=== PATIENT | male | born 1945 | race Caucasian/White ===

== ENCOUNTER 2017-06-12 00:07 | Day surgery (SDC) | payer MEDICARE, BC ==
[~2017-06-12] VITALS: Ht 198.1 cm; Wt 108.9 kg
[~2017-06-12 00:07] MED LIST: AMLO-96 PO; IBUP100T51 PO; LEVO-3 PO; METF-420 PO; MULT-1287 PO; OXYB5TAB86 PO; PRED-1 PO; ROSU20TA23 PO
[2017-06-12 06:54] VITALS: BP 123/90
--- NOTE | 2017-06-12 07:09 | EKG ---
FACILITY: PATIENT NAME: DAVID HERMAN : [id number] MR: [id number] V: [id number] EXAM DATE: ORDERING PHYSICIAN: EARL TEJEDA TECHNOLOGIST: ARBEN Thomas Reason : PREOP-PROSTATE Blood Pressure : / mmHG Vent. Rate : 066 BPM Atrial Rate : 066 BPM P-R Int : 204 ms QRS Dur : 110 ms QT Int : 418 ms P-R-T Axes : 016 -23 017 degrees QTc Int : 438 ms Sinus rhythm with premature supraventricular complexes Left axis Nonspecific T wave abnormality Abnormal ECG No previous ECGs available Confirmed by JAE PEREZ ([id number]) on 06/12/2017 4:15:25 PM Referred By: NIKHIL Confirmed By:JAE PEREZ
[2017-06-12] MEDS ORDERED: ONDANSETRON 4 MG/2 ML VIAL ONE (07:14)
[2017-06-12] MEDS ORDERED: LIDOCAINE MPF 1% 5 ML VIAL ONE (07:14)
[2017-06-12] MEDS ORDERED: PROPOFOL EMUL(*) 10MG/ML 20 ML 20 ML ONE (07:14)
[2017-06-12] MEDS ORDERED: DEXAMETHASONE SOD 4 MG/ML VIAL ONE (07:14)
[2017-06-12] MEDS ORDERED: fentaNYL CITR 100 MCG/2 ML AMP ONE (07:15)
[2017-06-12] MEDS ORDERED: GENTAMICIN(*) 80 MG/2 ML VIAL 160 MG in NS(*) 0.9% 100 ML BAG 100 ML IVPB ONE (08:00)
[2017-06-12] MEDS ORDERED: cefTRIAXone(*) 1 GM VIAL 1 GM in NS(*) 0.9% 100 ML ADDVANT BAG 100 ML IVPB ONE (08:00)
[2017-06-12] MEDS ORDERED: FAMOTIDINE 20 MG TAB PO ONE (08:00)
[2017-06-12] MEDS ORDERED: MIDAZOLAM 2 MG/2 ML VIAL IVP PRN (08:00)
[2017-06-12] MEDS ORDERED: LIDOCAINE/SOD BICARB 8.4% SYR ID ONE (08:00)
[2017-06-12] MEDS ORDERED: NORMOSOL R SOLN(*) 1000 ML BAG 1,000 ML IV PRN (08:00)
[2017-06-12] MEDS ORDERED: LEVO-85 PO (08:52)
[2017-06-12] MEDS ORDERED: PROMETHAZINE 25 MG/ML 1 ML AMP ONE (08:52)
[2017-06-12] MEDS ORDERED: FAMO20TA28 PO (08:53)
[2017-06-12] MEDS ORDERED: IBUP800T37 PO (08:55)
[2017-06-12] MEDS ORDERED: HYDR-4308 PO (09:11)
[2017-06-12 09:30] VITALS: BP 115/81
[2017-06-12 09:37] VITALS: BP 120/67
[2017-06-12 09:40] VITALS: BP 113/65
--- NOTE | 2017-06-12 16:40 | OPERATIVE REPORT 1 ---
EVENT DATE: June 12, 2017 SURGEON: Reji Nguyen MD ANESTHESIOLOGIST: Arcenio Almonte MD ANESTHESIA: General PREOPERATIVE DIAGNOSES 1. Elevated prostate-specific antigen. 2. Abnormal-feeling prostate. POSTOPERATIVE DIAGNOSES 1. Elevated prostate-specific antigen. 2. Abnormal-feeling prostate. PROCEDURES PERFORMED 1. Prostate ultrasound. 2. Transrectal biopsies times 12. 3. Cystourethroscopy. 4. Evacuation of multiple blood clots from the bladder. DESCRIPTION OF PROCEDURE Under general anesthetic, the patient was prepped and draped in the standard lithotomy position. The prostate ultrasound was performed. The ultrasound showed scattered calculi, a few cystic lesions. Most calculi were on the left side. There was a hypoechoic area posteriorly from the right base to the mid prostate area. Biopsies were obtained from the base, mid, and apical areas of the prostate bilaterally times two for a total of 12 biopsy samples. The rectal probe was removed. Digital examination revealed minimal blood in the rectal ampulla. Patient was prepped and draped. A #21 panendoscope admitted through the urethra into the bladder. Urethra was normal. Prostate showed trilobar hyperplasia with obstruction. Bladder showed 4+ trabeculation. Trigone and ureteral orifices were normal. There were three to four fairly large clots in the bladder that were evacuated satisfactorily. The bladder irrigated relatively clear following that. The bladder was drained. The scope was withdrawn. Repeat digital examination, again, revealed minimal blood in the rectal ampulla. Patient tolerated the procedures satisfactorily and returned to the recovery room in satisfactory condition. This is a 71-year-old white male complaining of elevated PSA of 5.3 in April 2017. Patient had a 3.74 in June 2016. There was an area of induration first and foremost in the right lateral lobe area, mid base area. Patient was so informed. Options were discussed with the patient, and he was agreeable to further evaluation. That has been accomplished. See operative note for details. Patient will be ready for discharge home when alert and functional. Patient is to force fluids, 2 L per day. Activities are as tolerated. Patient is to continue his usual medications. Outpatient instructions were given to the patient. Plan followup at the [facility] on Friday, the May. He is to call for an appointment. Patient was given descriptions for Levaquin, Pepcid, Motrin, and [place] therapy. Patient is to continue his usual medications. Patient is to contact me if there are any difficulties. He was given my personal cell phone number. If patient is unable to void, he is to go to the Emergency Room for Kohler placement. HOANG
--- NOTE | 2017-06-12 17:00 | RADIOLOGY IMAGING REPORT ---
[place] [facility] [place] Shady Vargas : 1945 MR: [id number] V: [id number] EXAM DATE: ORDERING PHYSICIAN: BRANDO NGUYEN TECHNOLOGIST: Location: [facility] [place] Patient: Shady Vargas : 1945 Visit/Account:[id number] Date of Sevice: 06/12/2017 Exam type: PROSTATE BIOPSY History: Elevated PSA Comparison: None. Findings: The prostate biopsy was performed by Dr. Nguyen. Sonographic assistance was provided Please see Dr. Nguyen's note for complete details. IMPRESSION: 1. As above Report Dictated By: Joi Ospina MD at 06/12/2017 4:55 PM Report E-Signed By: Joi Ospina MD at 06/12/2017 4:56 PM WSN:[id number]
== END 2017-06-12 09:30 | disposition home or self-care (01) ==
LOC: OR 00:07
DX: R97.20 Elevated prostate specific antigen [PSA] (principal); I10 Essential (primary) hypertension; E11.9 Type 2 diabetes mellitus without complications
CPT/HCPCS: 36416; 52001; 55700; 76942; 82948; 88305; 88344; 93005; A9270; J1100; J1580; J2001; J2405; J2550; J2704; J3010; J7050

== ENCOUNTER 2017-09-05 10:01 | Outpatient (RCR) | payer MEDICARE, BC ==
[~2017-09-05 10:01] MED LIST changes: +FAMO20TA28 PO; +HYDR-4308 PO; +IBUP800T37 PO; +LEVO-85 PO; -METF-420 PO; +METF-421 PO
== END 2017-10-24 09:16 | disposition home or self-care (01) ==
LOC: SPU 10:01
PROVIDERS: ATTEND Nurse Practitioner Family
DX: C61 Malignant neoplasm of prostate (principal)

== ENCOUNTER 2017-09-05 10:13 | Inpatient (IN) | payer MEDICARE, BC ==
[~2017-09-05] VITALS: Ht 203.2 cm; Wt 105.2 kg
--- NOTE | 2017-09-05 10:23 | ER Report ---
History and Physical Time Seen By MD: 10:23 HPI/ROS CHIEF COMPLAINT: possible bowel obstruction HISTORY OF PRESENT ILLNESS: This is a 72 year old male. He was at the cancer center for his radiation treatment for prostate cancer, but had been having abdominal pain with distention. He has not had a bowel movement for 4 days. He is having diffuse abdominal pain, worse in the lower abdomen. He has not urinated this morning as well and feels like he needs to urinate but cannot. The cancer center started a workup, including some initial blood work and imaging. They are concerned about possible bowel obstruction. He is not nauseated and no vomiting. He denies shortness of breath or chest pain at this time. No fevers or chills noted. No pain in the back or extremities. REVIEW OF SYSTEMS: As above. Allergies: Coded Allergies: atorvastatin (Verified Allergy, Intermediate, "bad cramps in leg" , ) Home Meds Reported Medications Ibuprofen (IBUPROFEN) 800 Mg Tablet, 1 TAB PO BID Y for PAIN, #30 TAB 06/12/17 Multivitamin (MEN'S MULTI-VITAMIN) 1 Each Tablet, 1 EACH PO 06/06/17 Rosuvastatin Calcium (CRESTOR) 20 Mg Tablet, 20 MG PO QDAY 06/06/17 Amlodipine Besylate (AMLODIPINE BESYLATE) 5 Mg Tablet, 1 TAB PO QDAY, TAB 06/06/17 Levothyroxine Sodium (LEVOTHYROXINE SODIUM) 100 Mcg Tablet, 112 MCG PO QDAY, TAB 06/06/17 Metformin Hcl (METFORMIN HCL) 1,000 Mg Tablet, 1 TAB PO BID, TAB 06/06/17 Oxybutynin Chloride (OXYBUTYNIN CHLORIDE) 5 Mg Tablet, 5 MG PO QDAY, TAB 06/06/17 Prednisone 10 Mg Tab (PREDNISONE 10 MG TAB) 10 Mg Tablet, 5 MG PO QDAY, #3 TAB 06/06/17 Past Medical/Surgical History Ayg-[id number]-[id number] diabetes, hypertension, hyperlipidemia, hypothyroidism, arthritis, history of prostate cancer, history of appendectomy, history of back surgery and L4-L5 and L5-S1, cataract surgery. Reviewed Nurses Notes: Yes Hx Smoking: Yes (QUIT 1974, 1 PPD X 8 YRS) Smoking Status: Former Smoker Hx Alcohol Use: No Constitutional Vital Sign - Last 24 Hours 09/05/17 09/05/17 09/05/17 09/05/17 10:15 10:18 10:28 10:30 Temp 97.5 Pulse 71 77 Resp 16 B/P (MAP) 161/106 161/105 (123) 135/97 (110) Pulse Ox 91 91 O2 Delivery Room Air 09/05/17 09/05/17 09/05/17 09/05/17 10:43 10:58 11:00 11:13 Pulse 76 82 70 B/P (MAP) 132/91 (105) Pulse Ox 90 88 89 09/05/17 09/05/17 09/05/17 09/05/17 11:18 11:48 11:53 11:58 Pulse 64 58 62 71 Pulse Ox 94 97 95 92 09/05/17 09/05/17 09/05/17 09/05/17 12:00 12:03 12:07 12:08 Pulse 62 63 B/P (MAP) 146/102 (117) Pulse Ox 95 95 O2 Flow Rate 2.0 09/05/17 09/05/17 09/05/17 09/05/17 12:18 12:23 12:38 12:53 Pulse 86 87 61 83 Pulse Ox 89 90 94 09/05/17 09/05/17 09/05/17 09/05/17 13:00 13:08 13:23 13:30 Pulse 64 82 B/P (MAP) 133/94 (107) 130/94 (106) Pulse Ox 90 92 09/05/17 14:00 B/P (MAP) 138/97 (111) Physical Exam General Appearance: The patient is alert. No acute distress. Eyes: Pupils are equal, round. No pallor, injection or icterus. ENT: Mucous membranes are dry. Otherwise normal oral mucosa. Posterior oropharynx is normal. Neck: Supple and non tender. Respiratory: Lungs are clear to auscultation. Cardiovascular: Regular rate and rhythm. No murmurs, gallops or rubs. Normal capillary refill. Gastrointestinal: Abdomen is soft, tender diffusely but worse in lower abdomen. Distended. No rebound or guarding. Hyperactive bowel sounds. No costovertebral angle tenderness with percussion. Neurological: Alert and oriented x3 Skin: Warm and dry. No rashes. DIFFERENTIAL DIAGNOSIS: After history and physical exam, differential diagnosis was considered for abdominal pain including but not limited to what appears to be a bowel obstruction, but unknown cause. Having some urinary retention as well. Medical Decision Making Data Points Result Diagram: 09/06/17 0509/06/17 0521 Laboratory Hematology Test 09/05/17 10:40 09/05/17 11:05 Lactate 1.4 mmol/L (0.7-2.1) Amylase Level 67 U/L (0-110) Lipase 52 U/L (23-300) Urine Color Yellow Urine Clarity Clear Urine pH 5.0 pH (4.8-9.5) Urine Specific [place] 1.019 Urine Protein Negative mg/dL (NEGATIVE) Urine Glucose (UA) Negative mg/dL (NEGATIVE) Urine Ketones Trace mg/dL (NEGATIVE) Urine Blood Negative (NEGATIVE) Urine Nitrite Negative (NEGATIVE) Urine Bilirubin Negative (NEGATIVE) Urine Urobilinogen Negative mg/dL (0.2-1.9) Urine Leukocyte Esterase Negative (NEGATIVE) Urine RBC None /HPF (0-2/HPF) Urine WBC 1 /HPF (0-5/HPF) Urine Squamous Epithelial Cells Few /LPF (NONE-FEW) Urine Bacteria Negative /HPF (NONE-FEW) Urine Mucus Few /HPF (NONE-FEW) Chemistry Test 09/05/17 10:40 09/05/17 11:05 Lactate 1.4 mmol/L (0.7-2.1) Amylase Level 67 U/L (0-110) Lipase 52 U/L (23-300) Urine Color Yellow Urine Clarity Clear Urine pH 5.0 pH (4.8-9.5) Urine Specific [place] 1.019 Urine Protein Negative mg/dL (NEGATIVE) Urine Glucose (UA) Negative mg/dL (NEGATIVE) Urine Ketones Trace mg/dL (NEGATIVE) Urine Blood Negative (NEGATIVE) Urine Nitrite Negative (NEGATIVE) Urine Bilirubin Negative (NEGATIVE) Urine Urobilinogen Negative mg/dL (0.2-1.9) Urine Leukocyte Esterase Negative (NEGATIVE) Urine RBC None /HPF (0-2/HPF) Urine WBC 1 /HPF (0-5/HPF) Urine Squamous Epithelial Cells Few /LPF (NONE-FEW) Urine Bacteria Negative /HPF (NONE-FEW) Urine Mucus Few /HPF (NONE-FEW) Urinalysis Test 09/05/17 11:05 Urine Color Yellow Urine Clarity Clear Urine pH 5.0 pH (4.8-9.5) Urine Specific [place] 1.019 Urine Protein Negative mg/dL (NEGATIVE) Urine Glucose (UA) Negative mg/dL (NEGATIVE) Urine Ketones Trace mg/dL (NEGATIVE) Urine Blood Negative (NEGATIVE) Urine Nitrite Negative (NEGATIVE) Urine Bilirubin Negative (NEGATIVE) Urine Urobilinogen Negative mg/dL (0.2-1.9) Urine Leukocyte Esterase Negative (NEGATIVE) Urine RBC None /HPF (0-2/HPF) Urine WBC 1 /HPF (0-5/HPF) Urine Squamous Epithelial Cells Few /LPF (NONE-FEW) Urine Bacteria Negative /HPF (NONE-FEW) Urine Mucus Few /HPF (NONE-FEW) EKG/Imaging Imaging CT abdomen and pelvis with IV contrast Indication: Abdominal pain and distention Comparison: None available. . Technique: Axial CT images were obtained through the abdomen and pelvis during injection of nonionic iodinated intravenous contrast. Reformatted coronal and sagittal images were also obtained. One of the following dose optimization techniques was utilized in the performance of this exam: automated exposure control; adjustment of the mA and/ or kV according to the patient's size; or use of an iterative reconstruction technique. Specific details can be referenced in the facility's radiology CT exam operational policy. Contrast: 100 ml of Isovue-370 IV contrast. Findings: Lower lung lopez: Mild posterior dependent atelectasis at the lung bases. Liver: 1.2 cm cyst seen within the anterior right lobe of the liver.. There is also a tiny subcentimeter cyst seen within the superior anterior right lobe on image 62 of the axial series. Biliary: Gallbladder appears unremarkable as well as the intra and extra hepatic biliary system. Pancreas: Normal appearance. Spleen: Normal appearance. Adrenal glands: Unremarkable. Kidneys / retroperitoneum: No evidence of nephrolithiasis or hydronephrosis There are a few splenorenal varices suggested on the left. Bowel / peritoneum / mesenteries: There is evidence of a sigmoid volvulus with significantly dilated sigmoid colon and descending colon proximal to the volvulus. Moderate amount of stool seen within the ascending colon. Lymph node assessment: No pathologic adenopathy identified. Pelvic structures: Kohler catheter seen within the urinary bladder with nonspecific mild thickening of the wall urinary bladder noted. The distal tip of the catheter also appears to abut the superior margin of the urinary bladder wall and extends to the superficial margin of the wall on image 71 of sagittal series. Vessels: Mild atherosclerotic calcifications seen throughout a nonaneurysmal abdominal aorta and branches. Musculoskeletal / Body wall: Vacuum phenomenon L5-S1. Prominent facet arthropathy L4-L5 and L5-S1. Minimal anterior osteophytes spanning L3-L5. Moderate osteoarthritic changes of the pubic symphysis. Mild enthesopathic changes of the proximal bilateral hamstring tendons. IMPRESSION: 1. Sigmoid volvulus. 2. Kohler catheter within urinary bladder with the distal tip appearing to extend to the superficial margin of the superior anterior urinary bladder wall. No free fluid identified at this time. Report Dictated By: Arnol Weston MD at 09/05/2017 12:50 PM KUB done after NG tube. NG tube is not visible, so was removed and re-attempted. ED Course/Re-evaluation Clinical Indication for ER IV: Hydration, IV Access ED Course The patient had an IV started, and was given Morphine 4mg IV and Zofran 4mg IV. He had good relief with this. He had normal saline started at 125cc/hr. A Kohler catheter was placed after bladder scanner showed about 400cc in the bladder, and drained 375cc of clear urine. I viewed the x-rays done at the cancer center and showed dilated bowel. NG tube was attempted, and the patient had a difficult time with this and on the third attempt seemed to be placed, but KUB did not show the NG tube in the lower chest/esophagus or stomach. A second dose of Morphine 4mg IV was given for pain. CT scan was obtained and showed a Sigmoid volvulus. Dr. Yanez was contacted and came to the ER for further evaluation. He will be admitting with plan to take him to the OR this afternoon. Decision to Disposition Date: Sep 05, 2017 Decision to Disposition Time: 13:23 Depart Departure Latest Vital Signs Vital Signs Date Time Temp Pulse Resp B/P (MAP) Pulse Ox O2 Delivery O2 Flow Rate FiO2 09/05/17 14:00 138/97 (111) 09/05/17 13:23 82 92 09/05/17 12:00 2.0 09/05/17 10:15 97.5 16 Room Air Impression: Primary Impression: Sigmoid volvulus Condition: Condition Unchanged Disposition: ADMIT FROM ER TO OR DEVIKA MULLEN MD Sep 05, 2017 10:23
[2017-09-05] MEDS ORDERED: NS(*) 0.9% 1000 ML BAG 1,000 ML IV ONE (10:35)
[2017-09-05] MEDS ORDERED: MORPHINE 4 MG/ML SDV IVP ONE ×2 (10:35→11:55)
[2017-09-05] MEDS ORDERED: ONDANSETRON 4 MG/2 ML VIAL IVP ONE (10:35)
[2017-09-05] MEDS ORDERED: IOPAMIDOL 76% 100 ML INFUS BTL 100 ML ONE (10:50)
[2017-09-05] MEDS ORDERED: LORazepam 2 MG/ML VIAL IVP ONE (11:55)
--- NOTE | 2017-09-05 13:08 | RADIOLOGY IMAGING REPORT ---
FACILITY: [facility] PATIENT NAME: Shady Vargas : 1945 MR: [id number] V: [id number] EXAM DATE: ORDERING PHYSICIAN: DEVIKA MULLEN TECHNOLOGIST: Location: [facility] - [place] Patient: Shady Vargas : 1945 Visit/Account:[id number] Date of Sevice: 09/05/2017 CT abdomen and pelvis with IV contrast Indication: Abdominal pain and distention Comparison: None available. . Technique: Axial CT images were obtained through the abdomen and pelvis during injection of nonioni c iodinated intravenous contrast. Reformatted coronal and sagittal images were also obtained. One of the following dose optimization techniques was utilized in the performance of this exam: autom ated exposure control; adjustment of the mA and/or kV according to the patient's size; or use of an i terative reconstruction technique. Specific details can be referenced in the facility's radiology CT exam operational policy. Contrast: 100 ml of Isovue-370 IV contrast. Findings: Lower lung lopez: Mild posterior dependent atelectasis at the lung bases. Liver: 1.2 cm cyst seen within the anterior right lobe of the liver.. There is also a tiny subcentim eter cyst seen within the superior anterior right lobe on image 62 of the axial series. Biliary: Gallbladder appears unremarkable as well as the intra and extra hepatic biliary system. Pancreas: Normal appearance. Spleen: Normal appearance. Adrenal glands: Unremarkable. Kidneys / retroperitoneum: No evidence of nephrolithiasis or hydronephrosis There are a few splenorenal varices suggested on the left. Bowel / peritoneum / mesenteries: There is evidence of a sigmoid volvulus with significantly dilated sigmoid colon and descending colon proximal to the volvulus. Moderate amount of stool seen within th e ascending colon. Lymph node assessment: No pathologic adenopathy identified. Pelvic structures: Kohler catheter seen within the urinary bladder with nonspecific mild thickening of the wall urinary bladder noted. The distal tip of the catheter also appears to abut the superior margin of the urinary bladder wall and extends to the superficial margin of the wall on image 71 of sagittal series. Vessels: Mild atherosclerotic calcifications seen throughout a nonaneurysmal abdominal aorta and bran ches. Musculoskeletal / Body wall: Vacuum phenomenon L5-S1. Prominent facet arthropathy L4-L5 and L5-S1. Minimal anterior osteophytes spanning L3-L5. Moderate osteoarthritic changes of the pubic symphysis. Mild enthesopathic changes of the proximal bilateral hamstring tendons. IMPRESSION: 1. Sigmoid volvulus. 2. Kohler catheter within urinary bladder with the distal tip appearing to extend to the superficial margin of the superior anterior urinary bladder wall. No free fluid identified at this time. Report Dictated By: Arnol Weston MD at 09/05/2017 12:50 PM Report E-Signed By: Arnol Weston MD at 09/05/2017 1:04 PM WSN:[email or web address]
[2017-09-05] MEDS ORDERED: PROMETHAZINE 25 MG/ML 1 ML AMP IVP PRN (13:25)
[2017-09-05] MEDS ORDERED: cefOXitin/DEX(*) 1GM/50ML PREM 50 ML IVPB ONE ×2 (13:25→18:25)
--- NOTE | 2017-09-05 13:37 | History & Physical ---
History of Present Illness Chief Complaint abdominal pain History of Present Illness 72 year old male with a h/o prostate cancer who was found to have a sigmoid volvulus. He was sent to the [facility] ED from the cancer center d/t abdominal pain and no bowel movement in 4 days. He had a CBC at the cancer center that reported a wbc of 11k. He has not had a fever. His abdomen has been distended. He reports generalized abdominal pain and distension. He has a h/o appendectomy. CT scan notes sigmoid volvulus and no other findings. He is not on any blood thinning medications. No cardiovascular comorbidities. He has non- insulin dependent diabetes. History Home Meds Reported Medications Ibuprofen (IBUPROFEN) 800 Mg Tablet, 1 TAB PO BID Y for PAIN, #30 TAB 06/12/17 Multivitamin (MEN'S MULTI-VITAMIN) 1 Each Tablet, 1 EACH PO 06/06/17 Rosuvastatin Calcium (CRESTOR) 20 Mg Tablet, 20 MG PO QDAY 06/06/17 Amlodipine Besylate (AMLODIPINE BESYLATE) 5 Mg Tablet, 1 TAB PO QDAY, TAB 06/06/17 Levothyroxine Sodium (LEVOTHYROXINE SODIUM) 100 Mcg Tablet, 112 MCG PO QDAY, TAB 06/06/17 Metformin Hcl (METFORMIN HCL) 1,000 Mg Tablet, 1 TAB PO BID, TAB 06/06/17 Oxybutynin Chloride (OXYBUTYNIN CHLORIDE) 5 Mg Tablet, 5 MG PO QDAY, TAB 06/06/17 Prednisone 10 Mg Tab (PREDNISONE 10 MG TAB) 10 Mg Tablet, 5 MG PO QDAY, #3 TAB 06/06/17 Allergies: Coded Allergies: atorvastatin (Verified Allergy, Intermediate, "bad cramps in leg" , ) Hx Smoking: Yes (QUIT 1974, 1 PPD X 8 YRS) Smoking Status: Former Smoker Caffeine Intake: Coffee, Tea Caffeine/Cups Per Day: 4 CPD Hx Alcohol Use: No Hx Substance Use Disorder: No Review of Systems Gastrointestinal: Nausea, Constipation, Abdominal Pain Exam Vital Signs Vital Signs Date Time Temp Pulse Resp B/P (MAP) Pulse Ox O2 Delivery O2 Flow Rate FiO2 09/05/17 12:18 86 89 09/05/17 12:07 146/102 (117) 09/05/17 12:00 2.0 09/05/17 10:15 97.5 16 Room Air Neuro: No Gross deficits Eyes: PERRLA ENT: Normal Neck: No Masses Cardiovascular: Normal Rhythm & Peripheral Pulses Respiratory: No Respiratory Distress, Clear to Auscultation GI: Other (distended, mildly tender) Extremities: Soft and Non Tender Integumentary: Skin Intact without Lesion / Mass Psych: Alert & Oriented X3 Venous Thromboembolism VTE Risk Patient's VTE Risk: Low VTE Diagnostic Test 2 Days Prior to Admit: No Antithrombotics Is Pt On Any Antithrombotics?: No Exam Sepsis Risk: No Definite Risk JEAN CALLAWAY MD Sep 05, 2017 13:37
--- NOTE | 2017-09-05 14:47 | RADIOLOGY IMAGING REPORT ---
[place] [facility] [place] NAME: Shady Vargas : 1945 MR: [id number] V: [id number] EXAM DATE: ORDERING PHYSICIAN: DEVIKA MULLEN TECHNOLOGIST: Location: [facility] - [place] Patient: Shady Vargas : 1945 Visit/Account:[id number] Date of Sevice: 09/05/2017 KUB SINGLE VIEW ABDOMEN Indication: NG tube placement Comparison: Single view abdomen earlier on 09/05/2017. Findings: Enteric feeding tube is not seen on these images. Persistent multiple dilated loops of small and lar ge bowel with no evidence of residual contrast within the bilateral renal collecting systems related to the recent CT abdomen and pelvis with contrast. There are no pathologic calcifications identified. IMPRESSION: 1. Persistent dilated loops of small and large bowel as above. 2. No evidence of enteric feeding tube on these images. Report Dictated By: Arnol Weston MD at 09/05/2017 2:41 PM Report E-Signed By: Arnol Weston MD at 09/05/2017 2:43 PM WSN:[email or web address]
[2017-09-05 14:57] VITALS: BP 130/93
[2017-09-05] MEDS ORDERED: FAMOTIDINE 20 MG TAB PO ONE (15:15)
[2017-09-05] MEDS ORDERED: NORMOSOL R SOLN(*) 1000 ML BAG 1,000 ML IV ONE (15:15)
[2017-09-05] MEDS ORDERED: fentaNYL CITR 250 MCG/5 ML AMP ONE (15:32)
[2017-09-05] MEDS ORDERED: ONDANSETRON 4 MG/2 ML VIAL ONE (15:33)
[2017-09-05] MEDS ORDERED: DEXAMETHASONE SOD PHOS 10MG/ML ONE (15:33)
[2017-09-05] MEDS ORDERED: PROPOFOL EMUL(*) 10MG/ML 20 ML 20 ML ONE (15:33)
[2017-09-05] MEDS ORDERED: LIDOCAINE MPF 1% 5 ML VIAL ONE ×2 (15:33)
[2017-09-05] MEDS: HYDROmorphone PCA 6 MG/30 ML IV PRN (17:49)
[2017-09-05] MEDS: KCL/D1/2NS 20 MEQ 1000 ML 1,000 ML IV PRN (17:50)
[2017-09-05] MEDS ORDERED: BUPIV/EPI 0.25% 1:200,000 50ML INFIL ONE (18:36)
[2017-09-05] MEDS ORDERED: ROPIVACAINE 0.2% 20 ML VIAL ONE (18:36)
[2017-09-05] MEDS ORDERED: KETAMINE HCL 200 MG/20 ML MDV ONE (18:45)
[2017-09-05] MEDS ORDERED: HALOPERIDOL LACT 5 MG/ML VIAL IM ONE (18:51)
[2017-09-05] MEDS ORDERED: ACETAMINOPHEN(*)1000 MG/100 ML 100 ML IVPB ONE (19:38)
[2017-09-05] MEDS ORDERED: SUGAMMADEX SOD 500 MG/5 ML SDV ONE (20:08)
[2017-09-05] MEDS ORDERED: NS 0.9% IRRIGATION 1000ML PLCT IR ONE (20:45)
[2017-09-05] MEDS ORDERED: fentaNYL CITR 100 MCG/2 ML AMP ONE (21:39)
[2017-09-05 22:40] VITALS: BP 133/61
[2017-09-05 23:00] VITALS: BP 112/70
[2017-09-05 23:15] VITALS: BP 143/92
[2017-09-05 23:30] VITALS: BP 147/104
[2017-09-05 23:45] VITALS: BP 150/98
[2017-09-06] VITALS (12 sets, daily range): BP systolic 111–159; BP diastolic 66–106
--- NOTE | 2017-09-06 00:24 | OPERATIVE REPORT 1 ---
EVENT DATE: September 05, 2017 SURGEON: Jorgito Yanez MD ANESTHESIOLOGIST: Arnol Joya MD ANESTHESIA: General endotracheal anesthesia. LEAD MANUFACTURING TECHNICIAN: None PREOPERATIVE DIAGNOSIS Sigmoid volvulus. POSTOPERATIVE DIAGNOSIS Sigmoid volvulus. PROCEDURE PERFORMED Sigmoid colectomy and end colostomy. ESTIMATED BLOOD LOSS 50 mL WOUND CLASS Class 2 FINDINGS Large redundant and dilated sigmoid colon. PROCEDURE IN DETAIL The patient was brought to the operating room and placed in the supine position. He underwent general endotracheal anesthesia. His abdomen was prepped and was sterilely draped. Appropriate antibiotics were infusing prior to making an incision. The timeout was then performed. I created a periumbilical midline celiotomy and then carrying this down through the linea alba. I noticed a large, redundant sigmoid colon that was eviscerated and then detorsed. I found a spot on the descending colon that was decompressed and came across this with the HILARY blue load stapler 75 mm. I then marched down the colon towards the rectosigmoid junction using the Harmonic scalpel. At the level of the rectosigmoid junction, I transected the colon using another fire of the HILARY blue load staple. I then noted some bleeding on the mesenteric transection line, and I oversewed this with a running locking 2-0 silk suture along the entire length of the mesenteric transection line. I then ran the small bowel and found no unexpected abnormalities. I freed some adhesions up from the left colon to the small bowel mesentery to provide more length. I then created a defect in the left lower quadrant just inferior to the umbilicus through the skin and anterior rectus sheath, splitting the rectus muscles and posterior rectus sheath for our colostomy. I dilated this up so that two fingers could fit through. I then pulled our descending colon stump through this area and secured it with a Evelia clamp. I then irrigated the abdomen with 2 L of saline. I noticed a little bleeding from the edge of the transected rectosigmoid junction. I decided to oversew this with interrupted silk sutures. I placed 2-0 prolene suture, leaving the tails long to help identify it in the future. After making a brief exploration of the abdomen and ensuring the bowels were all in the correct orientation and pulling the omentum down low, the lap counts were correct at this point, and I closed the midline incision with running #1 looped PDS. I then irrigated this wound and closed the skin with adilson and placed a sterile dressing. I then matured my colostomy by cutting up the staple line with Bovie electrocautery and then maturing it with interrupted 3-0 Vicryl sutures. It appeared pink and healthy after maturation. I then placed a colostomy appliance over this. The patient was then awakened from anesthesia and transported to the PACU and then recovery. HOANG
[2017-09-06 06:19] LABS: PLATELET COUNT, AUTOMATED 164 K/uL (150-450)
[2017-09-06] MEDS: KCL/D1/2NS 20 MEQ 1000 ML 1,000 ML IV PRN ×3 (06:24→23:09)
[2017-09-06] MEDS: ENOXAPARIN 40 MG/0.4ML SYR SC SCH (09:36)
--- NOTE | 2017-09-06 09:47 | General Surgery Progress Note ---
Subjective Progress Notes Subjective passing gas from stoma Physical Exam Vital Signs Date Time Temp Pulse Resp B/P (MAP) Pulse Ox O2 Delivery O2 Flow Rate FiO2 09/06/17 09:34 90 09/06/17 08:04 16 09/06/17 08:04 98.1 67 119/83 (95) Oxy Mask 2.0 General Appearance: Alert, Awake Neuro: No Gross deficits Eyes: PERRLA ENT: Moist Mucous Membranes Cardiovascular: Normal Rhythm & Peripheral Pulses Respiratory: No Respiratory Distress GI: Other (stoma pink, edematous, gas in back. dressing mostly dry, abd attp) Extremities: Soft and Non Tender Integumentary: Skin Intact without Lesion / Mass Psych: Alert & Oriented X3 Result Diagram: 09/06/17 0521 09/06/17 0521 Assessment and Plan Problems: (1) Sigmoid volvulus Status: Acute Assessment & Plan: 09/06 POD1 sigmoidectomy and end colostomy doing well pain controlled with CANVAS SHRINKER passing flatus from stoma, start CLD maintain kendall trend labs Exam Sepsis Risk: No Definite Risk JEAN CALLAWAY MD Sep 06, 2017 09:47
[2017-09-06] MEDS: GABAPENTIN 300 MG CAP PO SCH ×3 (10:38→20:51)
[2017-09-06] MEDS: ACETAMINOPHEN 500 MG TAB PO SCH ×2 (10:38→17:48)
--- NOTE | 2017-09-06 11:31 | Medical Nutrition Therapy ---
Nutrition Anthropometrics Height (Inches): 80.00 Height (Calculated Centimeters: 203.034791 Weight (Pounds): 250 Weight (Calculated Kilograms): 113.398 Miller Nutrition Score: Adequate Miller Nutrition Risk Score: 20 Dietary Referral Nutrition Risk Factors: Nutrition Risk Comment: Physical Findings Physical Appearance: Overweight BMI 25-29 Skin Appearance Skin Appearance: Edema Edema Location Modifier: Edema Location: Type of Edema: Degree of Edema: Gastrointestinal Symptoms GI Symtoms: Change in Bowel Pattern Tube Present: Bowel Sounds: Recent Bowel Pattern: Constipated Stool Characteristics: Nutritional Diagnosis Nutritional Risk Acuity 1: GI Obstruction Nutritional Risk Acuity 2: Head/Neck/GI Cancer (curretn tx for prostrate CA), New Colostomy Nutritional Acuity: 1-High Nutrition Diagnosis: Inadequate Food Intake, Altered GI Function Nutrition Etiology: Physiological Causes Nutrition Problem/Etiology/Sym: Altered GI function r/t dx SBO AEB new colostomy. Energy Requirement: 3200 ([place] St Jeor X 1.2 SF) Protein Requirement: 125 (1.1 gm/kg) Fluid Requirement: 3400 (30 ml/kg) Diet Type: NPO (Nothing by Mouth) Nutrition Intervention: Incr diet as tolerated Nutrition Monitoring & Eval RD Patient Assessment Time: [address] Assessment Type: RD Assessment Patient Nutrition Acuity: 1-High Follow Up Date: Sep 08, 2017 Nutritional Comment: 09/06 Pt admitted with SBO. Pt recieved surgery and now has new colostomy. Pt is curretnly undergoing tX for prostrate CA. Pt is passing gas from stoma and has hypoactive bowel sounds. Pt is NPO. Alb 3.5, BG elevated up to 177. Will cont to monitor and provide eduation for colostomy when appropriate. EMIL ENGLE Sep 06, 2017 11:31
[2017-09-07] MEDS: ACETAMINOPHEN 500 MG TAB PO SCH ×3 (02:49→16:11)
[2017-09-07 02:51] VITALS: BP 144/94
[2017-09-07] MEDS: HYDROmorphone PCA 6 MG/30 ML IV PRN (03:13)
[2017-09-07] MEDS: ONDANSETRON 4 MG/2 ML VIAL IVP PRN (05:46)
[2017-09-07 07:04] VITALS: BP 131/93
[2017-09-07] MEDS: KCL/D1/2NS 20 MEQ 1000 ML 1,000 ML IV PRN ×2 (07:37→16:10)
[2017-09-07] MEDS: GABAPENTIN 300 MG CAP PO SCH ×3 (08:42→21:00)
[2017-09-07] MEDS: ENOXAPARIN 40 MG/0.4ML SYR SC SCH (08:43)
--- NOTE | 2017-09-07 09:30 | General Surgery Progress Note ---
Subjective Progress Notes Subjective heart burn minimal output from stoma tolerating clears Physical Exam Vital Signs Date Time Temp Pulse Resp B/P (MAP) Pulse Ox O2 Delivery O2 Flow Rate FiO2 09/07/17 07:40 92 09/07/17 07:04 97.8 76 13 131/93 (106) Oxy Mask 3.0 General Appearance: Alert, Awake, No Acute Distress Eyes: PERRLA ENT: Normal, Moist Mucous Membranes Cardiovascular: Normal Rhythm & Peripheral Pulses Respiratory: No Respiratory Distress GI: Other (stoma pink and edematous, incision c/d/i, abd soft) Extremities: Soft and Non Tender Integumentary: Skin Intact without Lesion / Mass Psych: Alert & Oriented X3 Result Diagram: 09/06/1752009/06/17520 Assessment and Plan Problems: (1) Sigmoid volvulus Status: Acute Assessment & Plan: 09/06 POD1 sigmoidectomy and end colostomy doing well pain controlled 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 add bowel reg remove kendall catheter saline lock IVFs. check labs today Exam Sepsis Risk: No Definite Risk JEAN CALLAWAY MD Sep 07, 2017 09:30
[2017-09-07] MEDS ORDERED: MAGNESIUM HYDROXIDE* 30ML UDCP PO SCH (10:00)
[2017-09-07] MEDS ORDERED: POLYETHYLENE GLYCOL 17 GM PKT PO SCH (10:00)
[2017-09-07 11:28] VITALS: BP 129/89
[2017-09-07 11:33] LABS: PLATELET COUNT, AUTOMATED 171 K/uL (150-450)
--- NOTE | 2017-09-07 12:36 | RADIOLOGY IMAGING REPORT ---
FACILITY: [facility] PATIENT NAME: Shady Vargas : 1945 MR: [id number] V: [id number] EXAM DATE: ORDERING PHYSICIAN: JEAN CALLAWAY TECHNOLOGIST: Location: [facility] - [place] Patient: Shady Vargas : 1945 Visit/Account:[id number] Date of Sevice: 09/07/2017 ADDENDUM #1 Follow-up images of the abdomen were obtained, which demonstrated the nasogastric tube tip in the bod y the stomach in good position. Report Dictated By: Fede Lockhart at 09/07/2017 12:34 PM Report E-Signed By: Fede Lockhart at 09/07/2017 12:35 PM ORIGINAL REPORT KUB SINGLE VIEW ABDOMEN Indication: NG tube Comparison: Abdomen radiograph 09/05/2017. Findings: On the image and the more upper abdomen, there is a curvilinear structure, which likely is the nasogastric tube. However, images of the lower chest are not available, so it is difficult to be certain. Dilated loops of small bowel are seen. There is no free air. IMPRESSION: Nasogastric tube is probably in the stomach, however recommend a repeat abdomen radiograp h, with images centered more at the lung bases to confirm the position. This was called to the x-ray tech, who will repeat image. Report Dictated By: Fede Lockhart at 09/07/2017 11:01 AM Report E-Signed By: Fede Lockhart at 09/07/2017 12:31 PM WSN:[id number]
[2017-09-07 15:35] VITALS: BP 138/98
[2017-09-07 19:27] VITALS: BP 122/95
[2017-09-07] MEDS ORDERED: ALBUMIN HUMAN 5% IVPB ONE (21:35)
[2017-09-07 22:33] VITALS: BP 117/89
[2017-09-08] MEDS: KCL/D1/2NS 20 MEQ 1000 ML 1,000 ML IV PRN ×2 (00:08→16:31)
[2017-09-08] MEDS ORDERED: ALBUMIN HUMAN 5% 250 ML BTL 250 ML ONE (01:53)
[2017-09-08] MEDS ORDERED: ALBUMIN HUMAN 5% 250 ML BTL 250 ML IVPB ONE (01:55)
[2017-09-08] MEDS: ACETAMINOPHEN 500 MG TAB PO SCH (02:00)
[2017-09-08 02:58] VITALS: BP 100/77
[2017-09-08] MEDS ORDERED: IV BOLUS 500 ML IVSOL IV ONE (06:10)
--- NOTE | 2017-09-08 06:14 | General Surgery Progress Note ---
Subjective Progress Notes Subjective NGT >2L 50cc liquid output from colostomy no fevers low uop Physical Exam Vital Signs Date Time Temp Pulse Resp B/P (MAP) Pulse Ox O2 Delivery O2 Flow Rate FiO2 09/08/17 06:02 89 09/08/17 02:58 96.9 16 100/77 (85) Oxy Mask 4.0 09/07/17 23:55 117 General Appearance: Alert, Awake, No Acute Distress ENT: Normal, Other (ngt light bilious) Cardiovascular: Normal Rhythm & Peripheral Pulses, Other (sinus tach) GI: Other (mild distension, less tender than yesterday, colostomy is pink and edematous, some gas in bag) Extremities: Soft and Non Tender Integumentary: Skin Intact without Lesion / Mass Psych: Alert & Oriented X3 Result Diagram: 09/07/17 1115 09/07/17 1115 Assessment and Plan Problems: (1) Sigmoid volvulus Status: Acute Assessment & Plan: 09/06 POD1 sigmoidectomy and end colostomy doing well pain controlled 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 add bowel reg remove kendall catheter saline lock IVFs. check labs today 09/08 POD3 Cano's procedure for sigmoid volvulous path is still pending NPO, IVFs, NGT with high output, AROBF will start TPN today ambulate, PT/OT consult f/u labs Exam Sepsis Risk: No Definite Risk JEAN CALLAWAY MD Sep 08, 2017 06:14
[2017-09-08] MEDS ORDERED: MAGNESIUM SUL* 2 GM/50 ML IVPB 50 ML IVPB ONE (06:50)
[2017-09-08] MEDS ORDERED: KCL (*) 20 MEQ/100 ML PREMIX 100 ML IV SCH (07:00)
[2017-09-08] MEDS ORDERED: NS(*) 0.9% 500 ML BAG 500 ML ONE (07:34)
[2017-09-08 07:39] VITALS: BP 107/86
[2017-09-08 07:42] LABS: PLATELET COUNT, AUTOMATED 177 K/uL (150-450)
[2017-09-08] MEDS: GABAPENTIN 300 MG CAP PO SCH ×3 (09:00→20:50)
[2017-09-08] MEDS: PANTOPRAZOLE SOD 40 MG IV VIAL IVP SCH (09:15)
[2017-09-08] MEDS: ENOXAPARIN 40 MG/0.4ML SYR SC SCH (09:16)
[2017-09-08] MEDS ORDERED: ACETAMINOPHEN(*)1000 MG/100 ML 100 ML IVPB PRN (09:45)
[2017-09-08 11:43] VITALS: BP 108/78
[2017-09-08 18:58] VITALS: BP 107/83
[2017-09-08] MEDS: HYDROmorphone PCA 6 MG/30 ML IV PRN (23:17)
[2017-09-08 23:20] VITALS: BP 112/83
[2017-09-08] MEDS: INSULIN HUM LISPRO 100 UN/ML 3 ML VIAL SUBQ PRN (23:31)
[2017-09-09] VITALS (7 sets, daily range): BP systolic 103–126; BP diastolic 60–82
[2017-09-09] MEDS: KCL/D1/2NS 20 MEQ 1000 ML 1,000 ML IV PRN ×3 (00:50→19:40)
[2017-09-09 06:26] LABS: PLATELET COUNT, AUTOMATED 166 K/uL (150-450)
--- NOTE | 2017-09-09 07:22 | RADIOLOGY IMAGING REPORT ---
FACILITY: [facility] - [place] PATIENT NAME: Shady Vargas : 1945 MR: [id number] V: [id number] EXAM DATE: ORDERING PHYSICIAN: BUSTER TOTH TECHNOLOGIST: Location: [facility] - [place] Patient: Shady Vargas : 1945 Visit/Account:[id number] Date of Sevice: 09/09/2017 KUB SINGLE VIEW ABDOMEN COMPARISONS: Single view of the abdomen dated September 07, 2017 ADDITIONAL PERTINENT HISTORY: Postop ileus FINDINGS: Lung bases: Strandy opacity at the left lung base likely representing atelectatic change. Supine evidence of free air: None. Bowel gas pattern: NG tube with its tip in the midportion of the stomach. Improved but persistent dil ated loops of small bowel in the upper abdomen compatible with a resolving ileus. Surrounding soft tissues and solid organs: Negative. Osseous structures: Negative. IMPRESSION: 1. Improving but persistent ileus. 2. No new findings from previous exam. Report Dictated By: Bright Mendez MD at 09/09/2017 7:15 AM Report E-Signed By: Bright Mendez MD at 09/09/2017 7:18 AM WSN:[id number]
--- NOTE | 2017-09-09 08:10 | General Surgery Progress Note ---
Subjective Progress Notes Subjective No complaints. Pain well controlled. Physical Exam Vital Signs Date Time Temp Pulse Resp B/P (MAP) Pulse Ox O2 Delivery O2 Flow Rate FiO2 09/09/17 07:55 98.4 60 12 125/60 (81) 97 Nasal Cannula 1.5 Intake and Output 09/10/17 07:00 Output Total 50 ml Balance -50 ml Gastric Drainage Total 50 ml General Appearance: Alert, Awake, No Acute Distress, Afebrile GI: Other (Soft, mildly distended, appropriate postop TTP, midline incision is healing well without erythema or drainage. 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 add bowel reg remove kendall catheter saline lock IVFs. check labs today 09/08 POD3 Cano's procedure for sigmoid volvulous path is still pending NPO, IVFs, NGT with high output, AROBF will start TPN today ambulate, PT/OT consult f/u labs 09/09/17: POD#4. Doing well. Ileus improving but KUB still with with dilated loops of small bowel. Will start NG clamp trials today and if he does well with these will remove the NG tube tomorrow morning. Will start TPN today. Rads unable to place PICC yesterday as the radiologist that was here didn't do that procedure. Continue IS, pulmonary hygiene, PT/OT, ambulation, etc. Condition Stable. Time Spent: < 30 min Exam Sepsis Risk: No Definite Risk BUSTER TOTH MD Sep 09, 2017 08:10
[2017-09-09] MEDS: GABAPENTIN 300 MG CAP PO SCH ×3 (09:00→21:03)
[2017-09-09] MEDS: ENOXAPARIN 40 MG/0.4ML SYR SC SCH (09:16)
[2017-09-09] MEDS: PANTOPRAZOLE SOD 40 MG IV VIAL IVP SCH (09:16)
--- NOTE | 2017-09-09 12:34 | Medical Nutrition Therapy ---
Nutrition Anthropometrics Height (Inches): 80.00 Height (Calculated Centimeters: 203.007319 Weight (Pounds): 244 Weight (Calculated Kilograms): 110.677 Miller Nutrition Score: Adequate Miller Nutrition Risk Score: 20 Dietary Referral Nutrition Risk Factors: Nutrition Risk Comment: Physical Findings Physical Appearance: Overweight BMI 25-29 Skin Appearance Skin Appearance: Edema Edema Location Modifier: Edema Location: Type of Edema: Degree of Edema: Gastrointestinal Symptoms GI Symtoms: Change in Bowel Pattern Tube Present: NG Bowel Sounds: Recent Bowel Pattern: Constipated Stool Characteristics: Nutritional Diagnosis Nutritional Risk Acuity 1: GI Obstruction Nutritional Risk Acuity 2: Head/Neck/GI Cancer (curretn tx for prostrate CA), New Colostomy Nutritional Acuity: 1-High Nutrition Diagnosis: Inadequate Food Intake, Altered GI Function Nutrition Etiology: Physiological Causes Nutrition Problem/Etiology/Sym: Altered GI function r/t dx SBO AEB new colostomy. Energy Requirement: 2617 ([place]-Smith x 1.3SF with ht. of 73") Protein Requirement: 110 (1.1 gm/kg) Fluid Requirement: 2617 (1ml/kcal) Diet Type: NPO (Nothing by Mouth), TPN/PPN Nutrition Intervention: Incr diet as tolerated Nutritional Support Current Enteral / Parental: TPN Tube Feeding Supplement Streng: Full Rate: Clinimex 5%AA + 20% Dex at 83 mL/hr plus 250mL of 20% lipid Current Duration: 24 Current Calories: 1760 Current Protein: 100 Current Lipids Calories: 500 Total Current Calories: 2260 Recommended Enteral / Parental: TPN Tube Feeding Supplement Streng: Full Recommended Rate: Clinimex 5%AA + 20% Dex at 100 ml/hr plus 250mL of 20% lipid Recommended Goal Rate: 100 ml/hr Recommended Duration: 24 Recommended Calories: 2112 Recommended Protein: 120 Recommended Lipids Calories: 500 Total Recommended Calories: 2612 Nutrition Monitoring & Eval RD Patient Assessment Time: [address] Assessment Type: RD Assessment Patient Nutrition Acuity: 1-High Follow Up Date: Sep 08, 2017 Nutritional Comment: 09/06 Pt admitted with SBO. Pt recieved surgery and now has new colostomy. Pt is curretnly undergoing tX for prostrate CA. Pt is passing gas from stoma and has hypoactive bowel sounds. Pt is NPO. Alb 3.5, BG elevated up to 177. Will cont to monitor and provide eduation for colostomy when appropriate. BK 09/08 Today pt. is starting TPN Clinimex 5%AA + 20% Dex. with final rate of 83mL/hr plus 500kcal lipid. Recommend increasing to 100mL/hr Clinimex 5% + 20% Dex plus 500 kcal lipid for total of 2260 kcal. This would provide 100% kcal and 109% protein needs. Pt. still experiencing hypoactive bowel sounds with distention. Alb. low at 3.2 and Na 134. BG was running higher 161-177 but today 124. Still plan to provide education on new colostomy. Will continue to monitor labs, wt. changes and TPN. - RB Copies To Copies to: BUSTER TOTH MD, RAE ANN Sep 08, 2017 16:24
[2017-09-09] MEDS ORDERED: FAT EMULSION 20% 250 ML BAG 250 ML IVPB SCH (16:00)
[2017-09-09] MEDS: HYDROmorphone PCA 6 MG/30 ML IV PRN (16:03)
[2017-09-10] MEDS: KCL/D1/2NS 20 MEQ 1000 ML 1,000 ML IV PRN ×3 (03:54→22:52)
[2017-09-10 03:57] VITALS: BP 102/74
[2017-09-10 06:00] LABS: PLATELET COUNT, AUTOMATED 156 K/uL (150-450)
--- NOTE | 2017-09-10 07:00 | RADIOLOGY IMAGING REPORT ---
FACILITY: [facility] PATIENT NAME: Shady Vargas : 1945 MR: [id number] V: [id number] EXAM DATE: ORDERING PHYSICIAN: BUSTER TOTH TECHNOLOGIST: Location: [facility] Patient: Shady Vargas : 1945 Visit/Account:[id number] Date of Sevice: 09/10/2017 KUB SINGLE VIEW ABDOMEN COMPARISONS: Views of the abdomen dated September 09, 2017 ADDITIONAL PERTINENT HISTORY: Postop ileus FINDINGS: Lung bases: Mild bibasilar atelectatic change. Otherwise negative Supine evidence of free air: None. Bowel gas pattern: Continued but slightly improved dilated loops of small bowel and colon compatible with a resolving postop ileus. Surrounding soft tissues and solid organs: Surgical adilson along the midline of the abdomen. Osseous structures: Negative. IMPRESSION: 1. Bibasilar atelectatic change. 2. Improving but persistent postop ileus. Report Dictated By: Bright Mendze MD at 09/10/2017 6:53 AM Report E-Signed By: Bright Mendez MD at 09/10/2017 6:55 AM WSN:[id number]
--- NOTE | 2017-09-10 07:11 | General Surgery Progress Note ---
Subjective Progress Notes Subjective No complaints this morning. Not much pain. 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 add bowel reg remove kendall catheter saline lock IVFs. check labs today 09/08 POD3 Cano's procedure for sigmoid volvulous path is still pending NPO, IVFs, NGT with high output, AROBF will start TPN today ambulate, PT/OT consult f/u labs 09/09/17: POD#4. Doing well. Ileus improving but KUB still with with dilated loops of small bowel. Will start NG clamp trials today and if he does well with these will remove the NG tube tomorrow morning. Will start TPN today. Rads unable to place PICC yesterday as the radiologist that was here didn't do that procedure. Continue IS, pulmonary hygiene, PT/OT, ambulation, etc. 09/10/17: POD#5. Improving. NG removed and clear diet started last night. KUB this morning with some improving SB dilation. Will continue clear diet today. Hold off on PICC placement/TPN as I'm hopeful to start regular diet in next day or so. O/W CCM. Condition Stable. Time Spent: < 30 min Exam Sepsis Risk: No Definite Risk BUSTER TOTH MD Sep 10, 2017 07:11
[2017-09-10 07:53] VITALS: BP 111/75
[2017-09-10] MEDS: PANTOPRAZOLE SOD 40 MG IV VIAL IVP SCH (09:02)
[2017-09-10] MEDS: GABAPENTIN 300 MG CAP PO SCH ×3 (09:03→20:36)
[2017-09-10] MEDS: ENOXAPARIN 40 MG/0.4ML SYR SC SCH (09:03)
[2017-09-10] MEDS: HYDROmorphone PCA 6 MG/30 ML IV PRN (09:47)
[2017-09-10 11:46] VITALS: BP 94/76
[2017-09-10 12:38] VITALS: BP 98/67
[2017-09-10 15:06] VITALS: BP 122/74
[2017-09-10] MEDS ORDERED: [UNRECOGNIZED DRUG - OTHER] IV ONE (16:00)
[2017-09-10] MEDS ORDERED: LIDOCAINE 2% JELLY 5 ML TUBE TP ONE (18:05)
[2017-09-10] MEDS ORDERED: BENZOCAINE/TETRACAINE/BUTAMBEN TOP ONE (18:05)
[2017-09-10 19:51] VITALS: BP 134/91
--- NOTE | 2017-09-10 20:24 | RADIOLOGY IMAGING REPORT ---
FACILITY: [facility] - [place] PATIENT NAME: Shady Vargas : 1945 MR: [id number] V: [id number] EXAM DATE: ORDERING PHYSICIAN: BUSTER TOTH TECHNOLOGIST: Location: [facility] - [place] Patient: Shady Vargas : 1945 Visit/Account:[id number] Date of Sevice: 09/10/2017 INDICATION: Abdominal distention. EXAM DATE: 09/10/2017 6:01 PM COMPARISON: Same-day radiograph approximately 12 hours prior. FINDINGS: 2 AP supine images of the abdomen Redemonstration multiple distended loops of small bowel, overall similar in appearance to prior exami nation. No pneumatosis, pneumoperitoneum or portal venous gas. No evidence of large volume ascites or mass. Surgical clips over the lower abdomen/pelvis. IMPRESSION: No significant change with persistent dilated loops of small bowel that may represent ile us or obstruction. Report Dictated By: Vikash Bhatt MD at 09/10/2017 8:19 PM Report E-Signed By: Vikash Bhatt MD at 09/10/2017 8:21 PM WSN:[id number]
[2017-09-11 00:18] VITALS: BP 134/87
[2017-09-11] MEDS: ONDANSETRON 4 MG/2 ML VIAL IVP PRN (03:09)
[2017-09-11 04:06] VITALS: BP 120/79
[2017-09-11 05:58] LABS: PLATELET COUNT, AUTOMATED 157 K/uL (150-450)
--- NOTE | 2017-09-11 06:40 | RADIOLOGY IMAGING REPORT ---
FACILITY: [facility] PATIENT NAME: Shady Vargas : 1945 MR: [id number] V: [id number] EXAM DATE: ORDERING PHYSICIAN: BUSTER TOTH TECHNOLOGIST: Location: [facility] [place] Patient: Shady Vargas : 1945 Visit/Account:[id number] Date of Sevice: 09/11/2017 KUB SINGLE VIEW ABDOMEN COMPARISONS: Views of the abdomen dated September 10, 2017 ADDITIONAL PERTINENT HISTORY: Follow-up ileus FINDINGS: Lung bases: Not imaged Supine evidence of free air: None. Bowel gas pattern: Improved but persistent dilated loops of small and large bowel again most consiste nt with an underlying ileus versus a distal bowel obstruction. Surrounding soft tissues and solid organs: Surgical adilson overlying the midline of the abdomen and upper pelvis. Osseous structures: Mild osteoarthritic changes involving both hips. IMPRESSION: 1. Slightly improved ileus versus distal bowel obstruction when compared to previous exam. 2. No new findings from previous exam. Report Dictated By: Bright Mendez MD at 09/11/2017 6:35 AM Report E-Signed By: Bright Mendez MD at 09/11/2017 6:36 AM WSN:[id number]
[2017-09-11] MEDS: KCL/D1/2NS 20 MEQ 1000 ML 1,000 ML IV PRN ×2 (06:56→17:30)
--- NOTE | 2017-09-11 07:11 | General Surgery Progress Note ---
Subjective Progress Notes Subjective Threw up overnight. Feels "a little" better this morning. Several attempts at NG tube placement were unsuccessful last evening. Not much pain this morning. Physical Exam Vital Signs Date Time Temp Pulse Resp B/P (MAP) Pulse Ox O2 Delivery O2 Flow Rate FiO2 09/11/17 05:49 16 94 09/11/17 05:49 90 09/11/17 04:06 98.1 120/79 (93) Nasal Cannula 3.0 General Appearance: Alert, Awake, No Acute Distress, Afebrile GI: Other (Distended, mild diffuse TTP, no peritoneal signs. Stoma is pink with some stool but no gas in bag this morning. 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 add bowel reg remove kendall catheter saline lock IVFs. check labs today 09/08 POD3 Cano's procedure for sigmoid volvulous path is still pending NPO, IVFs, NGT with high output, AROBF will start TPN today ambulate, PT/OT consult f/u labs 09/09/17: POD#4. Doing well. Ileus improving but KUB still with with dilated loops of small bowel. Will start NG clamp trials today and if he does well with these will remove the NG tube tomorrow morning. Will start TPN today. Rads unable to place PICC yesterday as the radiologist that was here didn't do that procedure. Continue IS, pulmonary hygiene, PT/OT, ambulation, etc. 09/10/17: POD#5. Improving. NG removed and clear diet started last night. KUB this morning with some improving SB dilation. Will continue clear diet today. Hold off on PICC placement/TPN as I'm hopeful to start regular diet in next day or so. O/W CCM. 09/11/17: POD#6. Ileus worsened yesterday. Attempts at NG placement have not been successful. If we need an NG, may need to sedate him but will hold off for now. If N/V continues then will reapproach NG tube placement. Will place PICC line today and start TPN. NPO, bowel rest. Await improvement of ileus. Will need to follow surgical incision closely for increasing signs of infection as it is a little red this morning. Condition Stable. Time Spent: < 30 min Exam Sepsis Risk: No Definite Risk BUSTER TOTH MD Sep 11, 2017 07:11
[2017-09-11] MEDS: GABAPENTIN 300 MG CAP PO SCH ×3 (09:00→20:53)
[2017-09-11] MEDS: ENOXAPARIN 40 MG/0.4ML SYR SC SCH (09:10)
[2017-09-11] MEDS: PANTOPRAZOLE SOD 40 MG IV VIAL IVP SCH (09:10)
[2017-09-11] MEDS ORDERED: LIDOCAINE MPF 1% 5 ML VIAL ONE (10:15)
[2017-09-11] MEDS ORDERED: NS(*) 0.9% 10 ML VIAL 10 ML ONE (10:15)
[2017-09-11] MEDS: INSULIN HUM LISPRO 100 UN/ML 3 ML VIAL SUBQ PRN (12:15)
[2017-09-11 12:18] VITALS: BP 102/70
--- NOTE | 2017-09-11 15:08 | Medical Nutrition Therapy ---
Nutrition Anthropometrics Height (Inches): 80.00 Height (Calculated Centimeters: 203.102679 Weight (Pounds): 243 Weight (Calculated Kilograms): 110.223 Miller Nutrition Score: Probably Inadequate Miller Nutrition Risk Score: 18 Dietary Referral Nutrition Risk Factors: Nutrition Risk Comment: Nutritional Diagnosis Nutritional Risk Acuity 1: TPN/PPN, GI Obstruction, Ileus Nutritional Risk Acuity 2: Head/Neck/GI Cancer (curretn tx for prostrate CA), New Colostomy Nutritional Acuity: 1-High Nutrition Diagnosis: Inadequate Food Intake, Altered GI Function Nutrition Etiology: Physiological Causes Nutrition Problem/Etiology/Sym: Altered GI function r/t dx SBO AEB new colostomy. Energy Requirement: 2617 ([place]-Smith x 1.3SF with ht. of 73") Protein Requirement: 110 (1.1 gm/kg) Fluid Requirement: 2617 (1ml/kcal) Diet Type: NPO (Nothing by Mouth), TPN/PPN Nutrition Intervention: Incr diet as tolerated Nutritional Support Current Enteral / Parental: TPN Tube Feeding Supplement Streng: Full Rate: Clinimex 5%AA + 20% Dex at 83 mL/hr plus 250mL of 20% lipid Current Duration: 24 Current Calories: 1760 Current Protein: 100 Current Lipids Calories: 500 Total Current Calories: 2260 Recommended Enteral / Parental: TPN Tube Feeding Supplement Streng: Full Recommended Rate: Clinimex 5%AA + 20% Dex at 100 ml/hr plus 250mL of 20% lipid Recommended Goal Rate: 100 ml/hr Recommended Duration: 24 Recommended Calories: 2112 Recommended Protein: 120 Recommended Lipids Calories: 500 Total Recommended Calories: 2612 Nutrition Monitoring & Eval RD Patient Assessment Time: [address] Assessment Type: RD Re-Assessment Patient Nutrition Acuity: 1-High Follow Up Date: Sep 13, 2017 Nutritional Comment: 09/06 Pt admitted with SBO. Pt recieved surgery and now has new colostomy. Pt is curretnly undergoing tX for prostrate CA. Pt is passing gas from stoma and has hypoactive bowel sounds. Pt is NPO. Alb 3.5, BG elevated up to 177. Will cont to monitor and provide eduation for colostomy when appropriate. BK 09/08 Today pt. is starting TPN Clinimex 5%AA + 20% Dex. with final rate of 83mL/hr plus 500kcal lipid. Recommend increasing to 100mL/hr Clinimex 5% + 20% Dex plus 500 kcal lipid for total of 2260 kcal. This would provide 100% kcal and 109% protein needs. Pt. still experiencing hypoactive bowel sounds with distention. Alb. low at 3.2 and Na 134. BG was running higher 161-177 but today 124. Still plan to provide education on new colostomy. Will continue to monitor labs, wt. changes and TPN. - RB 09/11 Pt. ileus worsened, vomited last night but feeling a bit better today. Dr noted unable to place NG tube so pt NPO, starting TPN with PICC line this afternoon. On bowel rest, hypoactive and distended. No new alb. levels; WBC, Hct, Na low and CO2 high. BG also high at 123. Pt. on insulin. Current TPN Pt is getting 87% kcal and 90% protein needs. Recommend increasing TPN to 100mL/hr Clinimex 5% + 20% Dex plus 500kcal lipid for total of 2612 kcal. This would provide 100% kcal and 109% protein needs. Will monitor TPN, wt. changes and labs. -RB Copies To Copies to: BUSTER TOTH MD, RAE ANN Sep 11, 2017 14:59
[2017-09-11] MEDS: HYDROmorphone PCA 6 MG/30 ML IV PRN (15:13)
[2017-09-11 15:19] VITALS: BP 111/71
--- NOTE | 2017-09-11 15:24 | RADIOLOGY IMAGING REPORT ---
[facility] PATIENT NAME: Shady Vargas : 1945 MR: [id number] V: [id number] EXAM DATE: ORDERING PHYSICIAN: BUSTER TOTH TECHNOLOGIST: [place] [facility] [place]ady V[place] : 1945 Visit/Account:[id number] Date of Sevice: 09/11/2017 EXAMINATION: Left arm PICC catheter placement utilizing ultrasound and fluoroscopy for guidance 08/24 5:00 AM HISTORY: PICC placement for TPN COMPARISON: Chest x-ray 09/05/2017 FLUOROSCOPY TIME: 0.8 minutes DOSE: DAP was 263.73 uGy/m2 FINDINGS: Veins of the right and left upper arm were assessed with ultrasound. The left extremity w as chosen since the patient is right-handed. The left arm was prepped and draped in sterile fashion. Tourniquet was applied. Ultrasound was utilized to localize the appropriate site for entry into th e basilic vein. Lidocaine was utilized for local anesthesia. Using ultrasound visualization a micro puncture needle was utilized to gain access to the vein and a sheath was placed using Seldinger techn ique. Ultrasound imaging was saved and archived into PACs system. A dual-lumen PICC catheter was ad vanced through the sheath and fluoroscopy was used to confirm positioning. The catheter did not need to be shortened to have the tip in the lower SVC. The catheter aspirated and flushed without diffic ulty through both ports. Guidewire was removed. Catheter was fixed in place. No immediate competit ions were noted. IMPRESSION: Technically successful left arm PICC catheter placement utilizing sonographic and fluoroscopic tori trivedi. Report Dictated By: Fede De Souza MD at 09/11/2017 3:16 PM Report E-Signed By: Fede De Souza MD at 09/11/2017 3:20 PM WSN:[email or web address]
--- NOTE | 2017-09-11 15:25 | RADIOLOGY IMAGING REPORT ---
FACILITY: [facility] PATIENT NAME: Shady Vargas : 1945 MR: [id number] V: [id number] EXAM DATE: [id number] ORDERING PHYSICIAN: BUSTER TOTH TECHNOLOGIST: Location: [facility] [place] Patient: Shady Vargas : 1945 Visit/Account:[id number] Date of Sevice: 09/11/2017 EXAMINATION: Left arm PICC catheter placement utilizing ultrasound and fluoroscopy for guidance 08/24 5:00 AM HISTORY: PICC placement for TPN COMPARISON: Chest x-ray 09/05/2017 FLUOROSCOPY TIME: 0.8 minutes DOSE: DAP was 263.73 uGy/m2 FINDINGS: Veins of the right and left upper arm were assessed with ultrasound. The left extremity w as chosen since the patient is right-handed. The left arm was prepped and draped in sterile fashion. Tourniquet was applied. Ultrasound was utilized to localize the appropriate site for entry into th e basilic vein. Lidocaine was utilized for local anesthesia. Using ultrasound visualization a micro puncture needle was utilized to gain access to the vein and a sheath was placed using Seldinger techn ique. Ultrasound imaging was saved and archived into PACs system. A dual-lumen PICC catheter was ad vanced through the sheath and fluoroscopy was used to confirm positioning. The catheter did not need to be shortened to have the tip in the lower SVC. The catheter aspirated and flushed without diffic ulty through both ports. Guidewire was removed. Catheter was fixed in place. No immediate competit ions were noted. IMPRESSION: Technically successful left arm PICC catheter placement utilizing sonographic and fluoroscopic tori trivedi. Report Dictated By: Fede De Souza MD at 09/11/2017 3:16 PM Report E-Signed By: Fede De Souza MD at 09/11/2017 3:20 PM WSN:[email or web address]
[2017-09-11] MEDS ORDERED: [UNRECOGNIZED DRUG - OTHER] IV SCH (16:00)
[2017-09-11] MEDS ORDERED: [UNRECOGNIZED DRUG - OTHER] IV ONE (16:00)
[2017-09-11] MEDS: FAT EMULSION 20% 250 ML BAG 250 ML IVPB SCH (16:25)
[2017-09-11 19:29] VITALS: BP 121/80
[2017-09-11 22:40] VITALS: BP 117/76
[2017-09-12] MEDS: KCL/D1/2NS 20 MEQ 1000 ML 1,000 ML IV PRN ×2 (01:55→16:05)
[2017-09-12 03:10] VITALS: BP 101/67
[2017-09-12 05:41] LABS: PLATELET COUNT, AUTOMATED 145 K/uL (150-450)
--- NOTE | 2017-09-12 06:25 | RADIOLOGY IMAGING REPORT ---
FACILITY: [facility] PATIENT NAME: Shady Vargas : 1945 MR: [id number] V: [id number] EXAM DATE: ORDERING PHYSICIAN: BUSTER TOTH TECHNOLOGIST: Location: [facility] [place] Patient: Shady Vargas : 1945 Visit/Account:[id number] Date of Sevice: 09/12/2017 KUB SINGLE VIEW ABDOMEN COMPARISONS: Single view the abdomen dated September 11, 2017 ADDITIONAL PERTINENT HISTORY: Prolonged postop ileus FINDINGS: Lung bases: Not imaged Supine evidence of free air: None. Bowel gas pattern: Improving dilated loops of small and large bowel compatible with an improving ileu s. Surrounding soft tissues and solid organs: Midline surgical adilson in place. Osseous structures: Negative. IMPRESSION: 1. Interval improvement in dilated loops of small and large bowel compatible with an improving ileus. 2. No new findings from previous exam. Report Dictated By: Bright Mendez MD at 09/12/2017 6:20 AM Report E-Signed By: Bright Mendez MD at 09/12/2017 6:21 AM WSN:[id number]
--- NOTE | 2017-09-12 07:20 | General Surgery Progress Note ---
Subjective Progress Notes Subjective No complaints. Not much pain. No N/V. Physical Exam Vital Signs Date Time Temp Pulse Resp B/P (MAP) Pulse Ox O2 Delivery O2 Flow Rate FiO2 09/12/17 05:20 91 09/12/17 03:30 84 09/12/17 03:10 99.2 18 101/67 (78) Nasal Cannula 2.0 Intake and Output 09/13/17 06:59 Output Total 200 ml Balance -200 ml Output Urine Total 200 ml General Appearance: Alert, Awake, No Acute Distress, Afebrile GI: Soft and Non-Tender (Mildly distended. Incision looks good, Erythema is stable, no drainage. 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 add bowel reg remove kendall catheter saline lock IVFs. check labs today 09/08 POD3 Cano's procedure for sigmoid volvulous path is still pending NPO, IVFs, NGT with high output, AROBF will start TPN today ambulate, PT/OT consult f/u labs 09/09/17: POD#4. Doing well. Ileus improving but KUB still with with dilated loops of small bowel. Will start NG clamp trials today and if he does well with these will remove the NG tube tomorrow morning. Will start TPN today. Rads unable to place PICC yesterday as the radiologist that was here didn't do that procedure. Continue IS, pulmonary hygiene, PT/OT, ambulation, etc. 09/10/17: POD#5. Improving. NG removed and clear diet started last night. KUB this morning with some improving SB dilation. Will continue clear diet today. Hold off on PICC placement/TPN as I'm hopeful to start regular diet in next day or so. O/W CCM. 09/11/17: POD#6. Ileus worsened yesterday. Attempts at NG placement have not been successful. If we need an NG, may need to sedate him but will hold off for now. If N/V continues then will reapproach NG tube placement. Will place PICC line today and start TPN. NPO, bowel rest. Await improvement of ileus. Will need to follow surgical incision closely for increasing signs of infection as it is a little red this morning. 09/12/17: POD#7. Improving. KUB looks a little better. Stoma function improving. Continue bowel rest and will go very still and follow his KUBs as the previous 2 attempts at advancing his diet have led to increased distension with N/V. Continue TPN. Incision is stable, will follow for drainage or worsening erythema. CCM. Condition Stable. Time Spent: < 30 min Exam Sepsis Risk: No Definite Risk BUSTER TOTH MD Sep 12, 2017 07:20
[2017-09-12 07:39] VITALS: BP 106/78
[2017-09-12] MEDS: PANTOPRAZOLE SOD 40 MG IV VIAL IVP SCH (08:40)
[2017-09-12] MEDS: GABAPENTIN 300 MG CAP PO SCH ×3 (08:40→20:49)
[2017-09-12] MEDS: ENOXAPARIN 40 MG/0.4ML SYR SC SCH (08:40)
--- NOTE | 2017-09-12 11:14 | Medical Nutrition Therapy ---
Nutrition Anthropometrics Height (Inches): 80.00 Height (Calculated Centimeters: 203.337702 Weight (Pounds): 245 Weight (Calculated Kilograms): 111.357 Miller Nutrition Score: Probably Inadequate Miller Nutrition Risk Score: 18 Dietary Referral Nutrition Risk Factors: Nutrition Risk Comment: Nutritional Diagnosis Nutritional Risk Acuity 1: TPN/PPN, GI Obstruction, Ileus Nutritional Risk Acuity 2: Head/Neck/GI Cancer, New Colostomy Nutritional Acuity: 1-High Nutrition Diagnosis: Inadequate Food Intake, Altered GI Function Nutrition Etiology: Physiological Causes Nutrition Problem/Etiology/Sym: Altered GI function r/t dx SBO AEB new colostomy. Energy Requirement: 2617 Protein Requirement: 110 Fluid Requirement: 2617 Diet Type: NPO (Nothing by Mouth), TPN/PPN Nutrition Intervention: Incr diet as tolerated Nutritional Support Current Enteral / Parental: TPN Rate: Clinimex 5%AA + 20% Dex at 100 mL/hr plus 250mL of 20% lipid Current Duration: 24 Current Calories: 2112 Current Protein: 120 Current Lipids Calories: 500 Total Current Calories: 2612 Nutrition Monitoring & Eval RD Patient Assessment Time: [address] Assessment Type: RD Re-Assessment Patient Nutrition Acuity: 1-High Follow Up Date: Sep 16, 2017 Nutritional Comment: 09/06 Pt admitted with SBO. Pt recieved surgery and now has new colostomy. Pt is curretnly undergoing tX for prostrate CA. Pt is passing gas from stoma and has hypoactive bowel sounds. Pt is NPO. Alb 3.5, BG elevated up to 177. Will cont to monitor and provide eduation for colostomy when appropriate. BK 09/08 Today pt. is starting TPN Clinimex 5%AA + 20% Dex. with final rate of 83mL/hr plus 500kcal lipid. Recommend increasing to 100mL/hr Clinimex 5% + 20% Dex plus 500 kcal lipid for total of 2260 kcal. This would provide 100% kcal and 109% protein needs. Pt. still experiencing hypoactive bowel sounds with distention. Alb. low at 3.2 and Na 134. BG was running higher 161-177 but today 124. Still plan to provide education on new colostomy. Will continue to monitor labs, wt. changes and TPN. - RB 09/11 Pt. ileus worsened, vomited last night but feeling a bit better today. Dr noted unable to place NG tube so pt NPO, starting TPN with PICC line this afternoon. On bowel rest, hypoactive and distended. No new alb. levels; WBC, Hct, Na low and CO2 high. BG also high at 123. Pt. on insulin. Current TPN Pt is getting 87% kcal and 90% protein needs. Recommend increasing TPN to 100mL/hr Clinimex 5% + 20% Dex plus 500kcal lipid for total of 2612 kcal. This would provide 100% kcal and 109% protein needs. Will monitor TPN, wt. changes and labs. -RB 09/12 Pt cont on TPN. Rate has increased to 100ml/hr plus lipids which provided 2612 kcal and 120gm protein. This meets 100% est kcal and 109% est protein needs. Wt is stable. EMIL LOCKHART Sep 12, 2017 11:14
[2017-09-12 12:14] VITALS: BP 113/71
[2017-09-12 15:54] VITALS: BP 118/74
[2017-09-12] MEDS ORDERED: [UNRECOGNIZED DRUG - OTHER] IV SCH (16:00)
[2017-09-12] MEDS: [UNRECOGNIZED DRUG - OTHER] IV SCH (16:07)
[2017-09-12] MEDS: FAT EMULSION 20% 250 ML BAG 250 ML IVPB SCH (16:07)
[2017-09-12 18:58] VITALS: BP 108/78
[2017-09-12] MEDS: HYDROmorphone PCA 6 MG/30 ML IV PRN (20:59)
[2017-09-12 23:17] VITALS: BP 124/81
[2017-09-13 03:13] VITALS: BP 110/77
[2017-09-13 05:54] LABS: PLATELET COUNT, AUTOMATED 151 K/uL (150-450)
--- NOTE | 2017-09-13 06:43 | RADIOLOGY IMAGING REPORT ---
[place] [facility] [place] NAME: Shady Vargas : 1945 MR: [id number] V: [id number] EXAM DATE: ORDERING PHYSICIAN: BUSTER TOTH TECHNOLOGIST: Location: [facility] Patient: Shady Varags : 1945 Visit/Account:[id number] Date of Sevice: 09/13/2017 KUB SINGLE VIEW ABDOMEN HISTORY: ileus Abdominal series. Comparison made to previous study of 09/12/2017 FINDINGS: Slightly more pronounced small bowel dilatation when compared to the previous study. No appreciable c hange in the appearance of the visualized right colon. Persistent paucity of bowel gas in the pelvis. . Midline surgical staple line. IMPRESSION: 1. Slightly increasing prominence of small bowel loops compatible with persistent ileus. Report Dictated By: Costa Plata MD at 09/13/2017 6:36 AM Report E-Signed By: Costa Plata MD at 09/13/2017 6:39 AM WSN:[id number]
[2017-09-13 08:03] VITALS: BP 106/72
[2017-09-13] MEDS: ENOXAPARIN 40 MG/0.4ML SYR SC SCH (09:28)
[2017-09-13] MEDS: GABAPENTIN 300 MG CAP PO SCH ×3 (09:29→21:24)
[2017-09-13] MEDS: PANTOPRAZOLE SOD 40 MG IV VIAL IVP SCH (09:29)
--- NOTE | 2017-09-13 10:28 | General Surgery Progress Note ---
Subjective Progress Notes Subjective Patient without complaints today. Not much pain. No nausea. Does not feel bloated. Physical Exam Vital Signs Date Time Temp Pulse Resp B/P (MAP) Pulse Ox O2 Delivery O2 Flow Rate FiO2 09/13/17 08:15 90 09/13/17 08:03 98.2 89 16 106/72 (83) Nasal Cannula 2.0 Intake and Output 09/14/17 07:00 Output Total 475 ml Balance -475 ml Output Urine Total 475 ml General Appearance: Alert, Awake, No Acute Distress, Afebrile GI: Soft and Non-Tender (stoma is pink with small amount of gas and small amount of liquid stool in the bag. Midline incision is healing well without much erythema or drainage. 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 add bowel reg remove kendall catheter saline lock IVFs. check labs today 09/08 POD3 Cano's procedure for sigmoid volvulous path is still pending NPO, IVFs, NGT with high output, AROBF will start TPN today ambulate, PT/OT consult f/u labs 09/09/17: POD#4. Doing well. Ileus improving but KUB still with with dilated loops of small bowel. Will start NG clamp trials today and if he does well with these will remove the NG tube tomorrow morning. Will start TPN today. Rads unable to place PICC yesterday as the radiologist that was here didn't do that procedure. Continue IS, pulmonary hygiene, PT/OT, ambulation, etc. 09/10/17: POD#5. Improving. NG removed and clear diet started last night. KUB this morning with some improving SB dilation. Will continue clear diet today. Hold off on PICC placement/TPN as I'm hopeful to start regular diet in next day or so. O/W CCM. 09/11/17: POD#6. Ileus worsened yesterday. Attempts at NG placement have not been successful. If we need an NG, may need to sedate him but will hold off for now. If N/V continues then will reapproach NG tube placement. Will place PICC line today and start TPN. NPO, bowel rest. Await improvement of ileus. Will need to follow surgical incision closely for increasing signs of infection as it is a little red this morning. 09/12/17: POD#7. Improving. KUB looks a little better. Stoma function improving. Continue bowel rest and will go very still and follow his KUBs as the previous 2 attempts at advancing his diet have led to increased distension with N/V. Continue TPN. Incision is stable, will follow for drainage or worsening erythema. CCM. 09/13/17: POD#8. Patient is doing well but his KUB shows a little bit more small bowel distention this morning. We'll continue bowel rest and TPN. We'll follow his KUBs as well as his clinical exercise. Otherwise we'll continue current management. Condition Stable Time Spent: < 30 min Exam Sepsis Risk: No Definite Risk BUSTER TOTH MD Sep 13, 2017 10:28
[2017-09-13 11:28] VITALS: BP 120/85
[2017-09-13] MEDS: [UNRECOGNIZED DRUG - OTHER] IV SCH (12:33)
[2017-09-13 14:55] VITALS: BP 126/78
[2017-09-13] MEDS: FAT EMULSION 20% 250 ML BAG 250 ML IVPB SCH (15:54)
[2017-09-13] MEDS: ONDANSETRON 4 MG/2 ML VIAL IVP PRN (19:14)
[2017-09-13 19:19] VITALS: BP 102/80
[2017-09-13 23:55] VITALS: BP 118/78
[2017-09-14 06:10] LABS: PLATELET COUNT, AUTOMATED 147 K/uL (150-450)
[2017-09-14 08:16] VITALS: BP 110/73
[2017-09-14] MEDS: PANTOPRAZOLE SOD 40 MG IV VIAL IVP SCH (08:22)
[2017-09-14] MEDS: HYDROmorphone PCA 6 MG/30 ML IV PRN (08:22)
[2017-09-14] MEDS: KCL/D1/2NS 20 MEQ 1000 ML 1,000 ML IV PRN (08:22)
[2017-09-14] MEDS: GABAPENTIN 300 MG CAP PO SCH ×3 (08:22→21:06)
[2017-09-14] MEDS: ENOXAPARIN 40 MG/0.4ML SYR SC SCH (08:23)
--- NOTE | 2017-09-14 09:40 | General Surgery Progress Note ---
Subjective Progress Notes Subjective No complaints this morning. No pain. Physical Exam Vital Signs Date Time Temp Pulse Resp B/P (MAP) Pulse Ox O2 Delivery O2 Flow Rate FiO2 09/14/17 08:16 98.2 66 110/73 (85) 92 Nasal Cannula 2.0 09/13/17 23:55 16 Intake and Output 09/15/17 07:00 Output Total 300 ml Balance -300 ml Output Urine Total 300 ml # Voids 2 General Appearance: Alert, Awake, No Acute Distress, Afebrile GI: Soft and Non-Tender (Stoma is pink with some stool in bag.) Extremities: Warm, Perfused Result Diagram: 09/14/1751809/14/17518 Assessment and Plan Problems: (1) Sigmoid volvulus Status: Acute Assessment & Plan: 09/06 POD1 sigmoidectomy and end colostomy doing well pain controlled with PATENT PARALEGAL passing flatus from stoma, start CLD maintain kendall trend labs 09/07 POD2 Cano's procedure for sigmoid volvulous doing well toleraing clears, will advance to fulls. add bowel reg remove kendall catheter saline lock IVFs. check labs today 09/08 POD3 Cano's procedure for sigmoid volvulous path is still pending NPO, IVFs, NGT with high output, AROBF will start TPN today ambulate, PT/OT consult f/u labs 09/09/17: POD#4. Doing well. Ileus improving but KUB still with with dilated loops of small bowel. Will start NG clamp trials today and if he does well with these will remove the NG tube tomorrow morning. Will start TPN today. Rads unable to place PICC yesterday as the radiologist that was here didn't do that procedure. Continue IS, pulmonary hygiene, PT/OT, ambulation, etc. 09/10/17: POD#5. Improving. NG removed and clear diet started last night. KUB this morning with some improving SB dilation. Will continue clear diet today. Hold off on PICC placement/TPN as I'm hopeful to start regular diet in next day or so. O/W CCM. 09/11/17: POD#6. Ileus worsened yesterday. Attempts at NG placement have not been successful. If we need an NG, may need to sedate him but will hold off for now. If N/V continues then will reapproach NG tube placement. Will place PICC line today and start TPN. NPO, bowel rest. Await improvement of ileus. Will need to follow surgical incision closely for increasing signs of infection as it is a little red this morning. 09/12/17: POD#7. Improving. KUB looks a little better. Stoma function improving. Continue bowel rest and will go very still and follow his KUBs as the previous 2 attempts at advancing his diet have led to increased distension with N/V. Continue TPN. Incision is stable, will follow for drainage or worsening erythema. CCM. 09/13/17: POD#8. Patient is doing well but his KUB shows a little bit more small bowel distention this morning. We'll continue bowel rest and TPN. We'll follow his KUBs as well as his clinical exercise. Otherwise we'll continue current management. 09/14/17: POD#9. Doing well but KUB still with dilated small bowel. There are small hard stools in bag. Will start colace and miralax today and see if this helps. O/W, continue with bowel rest and TPN. Condition Stable Time Spent: < 30 min Exam Sepsis Risk: No Definite Risk BUSTER TOTH MD Sep 14, 2017 09:40
[2017-09-14] MEDS: [UNRECOGNIZED DRUG - OTHER] IV SCH (10:22)
[2017-09-14] MEDS: POLYETHYLENE GLYCOL 17 GM PKT PO SCH (10:28)
[2017-09-14] MEDS: DOCUSATE SODIUM 100 MG CAP PO SCH ×2 (10:28→21:00)
[2017-09-14 12:06] VITALS: BP 114/79
[2017-09-14 15:16] VITALS: BP 108/83
[2017-09-14] MEDS: FAT EMULSION 20% 250 ML BAG 250 ML IVPB SCH (16:58)
[2017-09-14 19:23] VITALS: BP 122/81
[2017-09-15] MEDS: [UNRECOGNIZED DRUG - OTHER] IV SCH (04:36)
--- NOTE | 2017-09-15 07:00 | RADIOLOGY IMAGING REPORT ---
FACILITY: [facility] PATIENT NAME: Shady Vargas : 1945 MR: [id number] V: [id number] EXAM DATE: ORDERING PHYSICIAN: BUSTER TOTH TECHNOLOGIST: Location: [facility] [place] Patient: Shady Vargas : 1945 Visit/Account:[id number] Date of Sevice: 09/15/2017 KUB SINGLE VIEW ABDOMEN HISTORY: prolonged postop ileus Single KUB. Comparison made to previous study of 09/13/2017 FINDINGS: There is a persistent dilated small bowel gas pattern in the central and upper aspects of the abdomen with a slight improvement in the degree of distention when compared to the previous study from 2017. Again, left colon and rectosigmoid demonstrating no appreciable air. IMPRESSION: 1. Persistent dilated loops of central small bowel which are minimally less distended than the previo us examination. Again, no air of any significance seen in within the left colon or within the rectosi gmoid vault. Report Dictated By: Costa Plata MD at 09/15/2017 6:52 AM Report E-Signed By: Costa Plata MD at 09/15/2017 6:56 AM WSN:[id number]
--- NOTE | 2017-09-15 08:11 | General Surgery Progress Note ---
Subjective Progress Notes Subjective No complaints. No pain. 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 add bowel reg remove kendall catheter saline lock IVFs. check labs today 09/08 POD3 Cano's procedure for sigmoid volvulous path is still pending NPO, IVFs, NGT with high output, AROBF will start TPN today ambulate, PT/OT consult f/u labs 09/09/17: POD#4. Doing well. Ileus improving but KUB still with with dilated loops of small bowel. Will start NG clamp trials today and if he does well with these will remove the NG tube tomorrow morning. Will start TPN today. Rads unable to place PICC yesterday as the radiologist that was here didn't do that procedure. Continue IS, pulmonary hygiene, PT/OT, ambulation, etc. 09/10/17: POD#5. Improving. NG removed and clear diet started last night. KUB this morning with some improving SB dilation. Will continue clear diet today. Hold off on PICC placement/TPN as I'm hopeful to start regular diet in next day or so. O/W CCM. 09/11/17: POD#6. Ileus worsened yesterday. Attempts at NG placement have not been successful. If we need an NG, may need to sedate him but will hold off for now. If N/V continues then will reapproach NG tube placement. Will place PICC line today and start TPN. NPO, bowel rest. Await improvement of ileus. Will need to follow surgical incision closely for increasing signs of infection as it is a little red this morning. 09/12/17: POD#7. Improving. KUB looks a little better. Stoma function improving. Continue bowel rest and will go very still and follow his KUBs as the previous 2 attempts at advancing his diet have led to increased distension with N/V. Continue TPN. Incision is stable, will follow for drainage or worsening erythema. CCM. 09/13/17: POD#8. Patient is doing well but his KUB shows a little bit more small bowel distention this morning. We'll continue bowel rest and TPN. We'll follow his KUBs as well as his clinical exercise. Otherwise we'll continue current management. 09/14/17: POD#9. Doing well but KUB still with dilated small bowel. There are small hard stools in bag. Will start colace and miralax today and see if this helps. O/W, continue with bowel rest and TPN. 09/15/17: POD#10. Doing well but KUB still with dilated small bowel without much improvement. Continue colace and miralax and bowel rest and TPN. He can have diabetic hard candy. Will continue to follow KUBs. Ambulate, pulmonary hygiene, PPI, lovenox. (2) Postoperative ileus Status: Chronic Condition Stable. Time Spent: < 30 min Exam Sepsis Risk: No Definite Risk BUSTER TOTH MD Sep 15, 2017 08:11
[2017-09-15] MEDS: POLYETHYLENE GLYCOL 17 GM PKT PO SCH (08:17)
[2017-09-15] MEDS: ENOXAPARIN 40 MG/0.4ML SYR SC SCH (08:17)
[2017-09-15] MEDS: DOCUSATE SODIUM 100 MG CAP PO SCH ×2 (08:18→21:08)
[2017-09-15] MEDS: GABAPENTIN 300 MG CAP PO SCH ×3 (08:18→21:08)
[2017-09-15] MEDS: PANTOPRAZOLE SOD 40 MG IV VIAL IVP SCH (08:18)
[2017-09-15 08:26] VITALS: BP 127/84
[2017-09-15] MEDS: HYDROmorphone PCA 6 MG/30 ML IV PRN (14:02)
[2017-09-15 16:32] VITALS: BP 110/74
[2017-09-15] MEDS: FAT EMULSION 20% 250 ML BAG 250 ML IVPB SCH (16:35)
[2017-09-15] MEDS: ONDANSETRON 4 MG/2 ML VIAL IVP PRN (16:35)
[2017-09-15 19:44] VITALS: BP 115/95
[2017-09-16] MEDS: KCL/D1/2NS 20 MEQ 1000 ML 1,000 ML IV PRN (00:19)
[2017-09-16] MEDS: [UNRECOGNIZED DRUG - OTHER] IV SCH ×2 (00:19→22:17)
[2017-09-16] MEDS: ONDANSETRON 4 MG/2 ML VIAL IVP PRN (00:35)
[2017-09-16 05:07] VITALS: BP 112/80
[2017-09-16 06:05] LABS: PLATELET COUNT, AUTOMATED 204 K/uL (150-450)
--- NOTE | 2017-09-16 06:53 | RADIOLOGY IMAGING REPORT ---
FACILITY: [facility] PATIENT NAME: Shady Vargas : 1945 MR: [id number] V: [id number] EXAM DATE: ORDERING PHYSICIAN: BUSTER TOTH TECHNOLOGIST: Location: [facility] Patient: Shady Vargas : 1945 Visit/Account:[id number] Date of Sevice: 09/16/2017 KUB SINGLE VIEW ABDOMEN HISTORY: ileus KUB Dilated loops of small bowel in the central and left lateral abdomen. Persistent fecal material right colon. Lack of air within the pelvis. Central surgical adilson from the lower lumbar through the mid sacrum. Overall appearance of the KUB unchanged when compared to the previous study. Impression excellent 1. Persistent unchanged ileus. Report Dictated By: Costa Plata MD at 09/16/2017 6:36 AM Report E-Signed By: Costa Plata MD at 09/16/2017 6:49 AM WSN:[email or web address]
--- NOTE | 2017-09-16 06:54 | General Surgery Progress Note ---
Subjective Progress Notes Subjective No complaints. No pain. Hungry. Physical Exam Vital Signs Date Time Temp Pulse Resp B/P (MAP) Pulse Ox O2 Delivery O2 Flow Rate FiO2 09/16/17 05:07 74 20 112/80 (91) 93 Nasal Cannula 3.0 09/15/17 19:44 97.8 General Appearance: Alert, Awake, No Acute Distress, Afebrile GI: Soft and Non-Tender (Incision looks good, no erythema or drainage. 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 add bowel reg remove kendall catheter saline lock IVFs. check labs today 09/08 POD3 Cano's procedure for sigmoid volvulous path is still pending NPO, IVFs, NGT with high output, AROBF will start TPN today ambulate, PT/OT consult f/u labs 09/09/17: POD#4. Doing well. Ileus improving but KUB still with with dilated loops of small bowel. Will start NG clamp trials today and if he does well with these will remove the NG tube tomorrow morning. Will start TPN today. Rads unable to place PICC yesterday as the radiologist that was here didn't do that procedure. Continue IS, pulmonary hygiene, PT/OT, ambulation, etc. 09/10/17: POD#5. Improving. NG removed and clear diet started last night. KUB this morning with some improving SB dilation. Will continue clear diet today. Hold off on PICC placement/TPN as I'm hopeful to start regular diet in next day or so. O/W CCM. 09/11/17: POD#6. Ileus worsened yesterday. Attempts at NG placement have not been successful. If we need an NG, may need to sedate him but will hold off for now. If N/V continues then will reapproach NG tube placement. Will place PICC line today and start TPN. NPO, bowel rest. Await improvement of ileus. Will need to follow surgical incision closely for increasing signs of infection as it is a little red this morning. 09/12/17: POD#7. Improving. KUB looks a little better. Stoma function improving. Continue bowel rest and will go very still and follow his KUBs as the previous 2 attempts at advancing his diet have led to increased distension with N/V. Continue TPN. Incision is stable, will follow for drainage or worsening erythema. CCM. 09/13/17: POD#8. Patient is doing well but his KUB shows a little bit more small bowel distention this morning. We'll continue bowel rest and TPN. We'll follow his KUBs as well as his clinical exercise. Otherwise we'll continue current management. 09/14/17: POD#9. Doing well but KUB still with dilated small bowel. There are small hard stools in bag. Will start colace and miralax today and see if this helps. O/W, continue with bowel rest and TPN. 09/15/17: POD#10. Doing well but KUB still with dilated small bowel without much improvement. Continue colace and miralax and bowel rest and TPN. He can have diabetic hard candy. Will continue to follow KUBs. Ambulate, pulmonary hygiene, PPI, lovenox. 09/16/17: POD#11. Doing well. Still with some dilated loops fo small bowel. Exam is benign and his stoma is functional. Will try limited volume clear diet. Continue colace, miralax, TPN, PPI, lovenox, ambulation, pulmonary hygiene, etc. (2) Postoperative ileus Status: Chronic Condition Stable. Time Spent: < 30 min Exam Sepsis Risk: No Definite Risk BUSTER TOTH MD Sep 16, 2017 06:54
[2017-09-16 07:37] VITALS: BP 98/67
[2017-09-16] MEDS: DOCUSATE SODIUM 100 MG CAP PO SCH ×2 (09:29→21:38)
[2017-09-16] MEDS: ENOXAPARIN 40 MG/0.4ML SYR SC SCH (09:29)
[2017-09-16] MEDS: PANTOPRAZOLE SOD 40 MG IV VIAL IVP SCH (09:29)
[2017-09-16] MEDS: POLYETHYLENE GLYCOL 17 GM PKT PO SCH (09:29)
[2017-09-16] MEDS: GABAPENTIN 300 MG CAP PO SCH ×3 (09:29→21:38)
--- NOTE | 2017-09-16 10:54 | Medical Nutrition Therapy ---
Nutrition Anthropometrics Height (Inches): 80.00 Height (Calculated Centimeters: 203.016581 Weight (Pounds): 243 Weight (Calculated Kilograms): 110.223 Miller Nutrition Score: Probably Inadequate Miller Nutrition Risk Score: 19 Dietary Referral Nutrition Risk Factors: Nutrition Risk Comment: Physical Findings Physical Appearance: Overweight BMI 25-29 Skin Appearance Skin Appearance: Edema Edema Location Modifier: Left Edema Location: Type of Edema: Degree of Edema: Gastrointestinal Symptoms GI Symtoms: Change in Bowel Pattern Tube Present: NG Bowel Sounds: Recent Bowel Pattern: Constipated Stool Characteristics: Nutritional Diagnosis Nutritional Risk Acuity 1: TPN/PPN, GI Obstruction, Ileus Nutritional Risk Acuity 2: Head/Neck/GI Cancer, New Colostomy Nutritional Acuity: 1-High Nutrition Diagnosis: Inadequate Food Intake, Altered GI Function Nutrition Etiology: Physiological Causes Nutrition Problem/Etiology/Sym: Altered GI function r/t dx SBO AEB new colostomy. Energy Requirement: 2617 Protein Requirement: 110 Fluid Requirement: 2617 Diet Type: NPO (Nothing by Mouth), TPN/PPN Nutrition Intervention: Incr diet as tolerated Nutritional Support Current Enteral / Parental: TPN Rate: Clinimex 5%AA + 20% Dex at 100 mL/hr plus 250mL of 20% lipid Current Duration: 24 Current Calories: 2112 Current Protein: 120 Current Lipids Calories: 500 Total Current Calories: 2612 Nutrition Monitoring & Eval RD Patient Assessment Time: [address] Assessment Type: RD Re-Assessment Patient Nutrition Acuity: 1-High Follow Up Date: Sep 19, 2017 Nutritional Comment: 09/06 Pt admitted with SBO. Pt recieved surgery and now has new colostomy. Pt is curretnly undergoing tX for prostrate CA. Pt is passing gas from stoma and has hypoactive bowel sounds. Pt is NPO. Alb 3.5, BG elevated up to 177. Will cont to monitor and provide eduation for colostomy when appropriate. BK 09/08 Today pt. is starting TPN Clinimex 5%AA + 20% Dex. with final rate of 83mL/hr plus 500kcal lipid. Recommend increasing to 100mL/hr Clinimex 5% + 20% Dex plus 500 kcal lipid for total of 2260 kcal. This would provide 100% kcal and 109% protein needs. Pt. still experiencing hypoactive bowel sounds with distention. Alb. low at 3.2 and Na 134. BG was running higher 161-177 but today 124. Still plan to provide education on new colostomy. Will continue to monitor labs, wt. changes and TPN. - SP 09/11 Pt. ileus worsened, vomited last night but feeling a bit better today. Dr noted unable to place NG tube so pt NPO, starting TPN with PICC line this afternoon. On bowel rest, hypoactive and distended. No new alb. levels; WBC, Hct, Na low and CO2 high. BG also high at 123. Pt. on insulin. Current TPN Pt is getting 87% kcal and 90% protein needs. Recommend increasing TPN to 100mL/hr Clinimex 5% + 20% Dex plus 500kcal lipid for total of 2612 kcal. This would provide 100% kcal and 109% protein needs. Will monitor TPN, wt. changes and labs. -SP 09/12 Pt cont on TPN. Rate has increased to 100ml/hr plus lipids which provided 2612 kcal and 120gm protein. This meets 100% est kcal and 109% est protein needs. Wt is stable. 09/16 Pt cont on TPN plus limited volume clear liquids. TPN rate remains at 100ml/hr Clinimix E 5-20, meeting calorie and protein needs. Wt stable. Glucose ranging from 121-137. Low H/H, Na 135. Alb. 2.8. Hypoactive bowel, distended, stoma functional. Will cont to monitor TPN, wt, labs and diet advancement. -NEETU DUDLEY Sep 16, 2017 09:19
[2017-09-16 15:15] VITALS: BP 98/69
--- NOTE | 2017-09-16 16:10 | RADIOLOGY IMAGING REPORT ---
FACILITY: [facility] - [place] PATIENT NAME: Shady Vargas : 1945 MR: [id number] V: [id number] EXAM DATE: ORDERING PHYSICIAN: BUSTER TOTH TECHNOLOGIST: Location: [facility] [place] Patient: Shady Vargas : 1945 Visit/Account:[id number] Date of Sevice: 09/14/2017 Exam type: KUB SINGLE VIEW ABDOMEN History: ileus Comparison: September 13, 2017. Findings: Images have just now been submitted for formal dictation.. There appears to be further increase in t he small bowel distention when compared the prior study with small bowel loops measuring up to 5.3 cm in diameter. Appears to be a moderate amount of fecal material in the right-sided colon. There is a paucity of bowel gas with remainder the colon. Ostomy ring projects over the left lower quadrant. Skin adilson are in the midline of the abdomen. IMPRESSION: 1. Increasing dilatation of the small bowel loops consistent with ileus versus small bowel obstructi on. Report Dictated By: Joi Ospina MD at 09/16/2017 4:04 PM Report E-Signed By: Joi Ospina MD at 09/16/2017 4:06 PM WSN:[email or web address]
[2017-09-16] MEDS: FAT EMULSION 20% 250 ML BAG 250 ML IVPB SCH (16:29)
[2017-09-16 22:18] VITALS: BP 116/77
[2017-09-17 03:31] VITALS: BP 121/78
--- NOTE | 2017-09-17 06:53 | General Surgery Progress Note ---
Subjective Progress Notes Subjective No complaints this morning. Tolerating small amounts of clear diet. Had a "coughing fit" this morning which led to a small clear emesis but he insists it was due to the coughing and not due to nausea. No pain. Doesn't feel bloated. Physical Exam Vital Signs Date Time Temp Pulse Resp B/P (MAP) Pulse Ox O2 Delivery O2 Flow Rate FiO2 09/17/17 06:01 93 09/17/17 03:53 102 09/17/17 03:31 99.1 18 121/78 (92) Nasal Cannula 1.0 General Appearance: Alert, Awake, No Acute Distress, Afebrile GI: Soft and Non-Tender (Midline incision is healing well without erythema or drainage. 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 add bowel reg remove kendall catheter saline lock IVFs. check labs today 09/08 POD3 Cano's procedure for sigmoid volvulous path is still pending NPO, IVFs, NGT with high output, AROBF will start TPN today ambulate, PT/OT consult f/u labs 09/09/17: POD#4. Doing well. Ileus improving but KUB still with with dilated loops of small bowel. Will start NG clamp trials today and if he does well with these will remove the NG tube tomorrow morning. Will start TPN today. Rads unable to place PICC yesterday as the radiologist that was here didn't do that procedure. Continue IS, pulmonary hygiene, PT/OT, ambulation, etc. 09/10/17: POD#5. Improving. NG removed and clear diet started last night. KUB this morning with some improving SB dilation. Will continue clear diet today. Hold off on PICC placement/TPN as I'm hopeful to start regular diet in next day or so. O/W CCM. 09/11/17: POD#6. Ileus worsened yesterday. Attempts at NG placement have not been successful. If we need an NG, may need to sedate him but will hold off for now. If N/V continues then will reapproach NG tube placement. Will place PICC line today and start TPN. NPO, bowel rest. Await improvement of ileus. Will need to follow surgical incision closely for increasing signs of infection as it is a little red this morning. 09/12/17: POD#7. Improving. KUB looks a little better. Stoma function improving. Continue bowel rest and will go very still and follow his KUBs as the previous 2 attempts at advancing his diet have led to increased distension with N/V. Continue TPN. Incision is stable, will follow for drainage or worsening erythema. [facility]. 09/13/17: POD#8. Patient is doing well but his KUB shows a little bit more small bowel distention this morning. We'll continue bowel rest and TPN. We'll follow his KUBs as well as his clinical exercise. Otherwise we'll continue current management. 09/14/17: POD#9. Doing well but KUB still with dilated small bowel. There are small hard stools in bag. Will start colace and miralax today and see if this helps. O/W, continue with bowel rest and TPN. 09/15/17: POD#10. Doing well but KUB still with dilated small bowel without much improvement. Continue colace and miralax and bowel rest and TPN. He can have diabetic hard candy. Will continue to follow KUBs. Ambulate, pulmonary hygiene, PPI, lovenox. 09/16/17: POD#11. Doing well. Still with some dilated loops fo small bowel. Exam is benign and his stoma is functional. Will try limited volume clear diet. Continue colace, miralax, TPN, PPI, lovenox, ambulation, pulmonary hygiene, etc. 09/17/17: POD#12. Doing well. KUB not done yet as he had a stoma bag blow out and staff was cleaning him up when x-ray came by. Exam is benign and stoma has good output. If KUB looks improved then will advance to unlimited clear diet. Continue colace, will stop miralax. Continue TPN, PPI, lovenox, ambulation, pulmonary hygiene, etc. (2) Postoperative ileus Status: Chronic Condition Stable. Time Spent: < 30 min Exam Sepsis Risk: No Definite Risk BUSTER TOTH MD Sep 17, 2017 06:53
[2017-09-17 08:17] VITALS: BP 119/82
--- NOTE | 2017-09-17 08:28 | RADIOLOGY IMAGING REPORT ---
FACILITY: [facility] PATIENT NAME: Shady Vargas : 1945 MR: [id number] V: [id number] EXAM DATE: ORDERING PHYSICIAN: BUSTER TOTH TECHNOLOGIST: [place] [facility] [place]ady V[place] : 1945 Visit/Account:[id number] Date of Sevice: 09/17/2017 Exam type: KUB SINGLE VIEW ABDOMEN History: Ileus Comparison: September 16, 2017. Findings: There is less fecal material identified in the right-sided colon. Small amount of bowel gas is now s een in the left-sided colon. There are persistently dilated loops of small bowel in the mid to upper abdomen measuring up to 4.6 cm in diameter appears be mild improvement of the small bowel distention . Surgical clips noted in the midline of the lower abdomen. There is an ostomy ring in the left low er quadrant IMPRESSION: 1. Persistently dilated loops of small bowel in the mid to upper abdomen are slightly improved altho ugh some distention remains. There is however less fecal material seen in the right-sided colon and a small amount of bowel gas now seen in the left-sided colon suggesting improving ileus Report Dictated By: Joi Ospina MD at 09/17/2017 8:20 AM Report E-Signed By: Joi Ospina MD at 09/17/2017 8:23 AM WSN:[email or web address]
[2017-09-17] MEDS: ENOXAPARIN 40 MG/0.4ML SYR SC SCH (09:56)
[2017-09-17] MEDS: GABAPENTIN 300 MG CAP PO SCH ×3 (09:57→20:43)
[2017-09-17] MEDS: PANTOPRAZOLE SOD 40 MG IV VIAL IVP SCH (09:57)
[2017-09-17] MEDS: DOCUSATE SODIUM 100 MG CAP PO SCH ×2 (09:57→20:43)
[2017-09-17 12:30] VITALS: BP 86/61
[2017-09-17 12:43] VITALS: BP 98/54
[2017-09-17] MEDS: INSULIN HUM LISPRO 100 UN/ML 3 ML VIAL SUBQ PRN (12:49)
[2017-09-17 15:56] VITALS: BP 102/84
[2017-09-17] MEDS: FAT EMULSION 20% 250 ML BAG 250 ML IVPB SCH (16:00)
[2017-09-17] MEDS: KCL/D1/2NS 20 MEQ 1000 ML 1,000 ML IV PRN (16:26)
[2017-09-17] MEDS: [UNRECOGNIZED DRUG - OTHER] IV SCH (16:27)
[2017-09-17 19:43] VITALS: BP 131/87
[2017-09-17] MEDS: HYDROmorphone PCA 6 MG/30 ML IV PRN (22:48)
[2017-09-18 00:02] VITALS: BP 120/84
[2017-09-18 03:34] VITALS: BP 129/79
[2017-09-18] MEDS: INSULIN HUM LISPRO 100 UN/ML 3 ML VIAL SUBQ PRN ×2 (06:17→18:15)
--- NOTE | 2017-09-18 07:08 | General Surgery Progress Note ---
Subjective Progress Notes Subjective No complaints. No pain. No N/V. No bloating. Tolerating clear diet for a couple of days now. Physical Exam Vital Signs Date Time Temp Pulse Resp B/P (MAP) Pulse Ox O2 Delivery O2 Flow Rate FiO2 09/18/17 05:38 90 09/18/17 03:34 98.3 76 12 129/79 (96) Nasal Cannula 1.0 General Appearance: Alert, Awake, No Acute Distress, Afebrile GI: Soft and Non-Tender (Incision looks good, no erythema or drainage. 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 add bowel reg remove kendall catheter saline lock IVFs. check labs today 09/08 POD3 Cano's procedure for sigmoid volvulous path is still pending NPO, IVFs, NGT with high output, AROBF will start TPN today ambulate, PT/OT consult f/u labs 09/09/17: POD#4. Doing well. Ileus improving but KUB still with with dilated loops of small bowel. Will start NG clamp trials today and if he does well with these will remove the NG tube tomorrow morning. Will start TPN today. Rads unable to place PICC yesterday as the radiologist that was here didn't do that procedure. Continue IS, pulmonary hygiene, PT/OT, ambulation, etc. 09/10/17: POD#5. Improving. NG removed and clear diet started last night. KUB this morning with some improving SB dilation. Will continue clear diet today. Hold off on PICC placement/TPN as I'm hopeful to start regular diet in next day or so. O/W CCM. 09/11/17: POD#6. Ileus worsened yesterday. Attempts at NG placement have not been successful. If we need an NG, may need to sedate him but will hold off for now. If N/V continues then will reapproach NG tube placement. Will place PICC line today and start TPN. NPO, bowel rest. Await improvement of ileus. Will need to follow surgical incision closely for increasing signs of infection as it is a little red this morning. 09/12/17: POD#7. Improving. KUB looks a little better. Stoma function improving. Continue bowel rest and will go very still and follow his KUBs as the previous 2 attempts at advancing his diet have led to increased distension with N/V. Continue TPN. Incision is stable, will follow for drainage or worsening erythema. CCM. 09/13/17: POD#8. Patient is doing well but his KUB shows a little bit more small bowel distention this morning. We'll continue bowel rest and TPN. We'll follow his KUBs as well as his clinical exercise. Otherwise we'll continue current management. 09/14/17: POD#9. Doing well but KUB still with dilated small bowel. There are small hard stools in bag. Will start colace and miralax today and see if this helps. O/W, continue with bowel rest and TPN. 09/15/17: POD#10. Doing well but KUB still with dilated small bowel without much improvement. Continue colace and miralax and bowel rest and TPN. He can have diabetic hard candy. Will continue to follow KUBs. Ambulate, pulmonary hygiene, PPI, lovenox. 09/16/17: POD#11. Doing well. Still with some dilated loops fo small bowel. Exam is benign and his stoma is functional. Will try limited volume clear diet. Continue colace, miralax, TPN, PPI, lovenox, ambulation, pulmonary hygiene, etc. 09/17/17: POD#12. Doing well. KUB not done yet as he had a stoma bag blow out and staff was cleaning him up when x-ray came by. Exam is benign and stoma has good output. If KUB looks improved then will advance to unlimited clear diet. Continue colace, will stop miralax. Continue TPN, PPI, lovenox, ambulation, pulmonary hygiene, etc. 09/18/17: POD#13. Doing well. KUB still with dilated loops of small bowel. Pt feeling so good this morning and his abdominal exam is benign and he's very hungry with good stoma output. Will advance diet to full liquid diet and patient advised to start slow and stop if he becomes bloated or nauseated. Continue colace. Continue TPN until tolerating regular diet. Continue PPI, lovenox, pulmonary hygiene, ambulation, etc. (2) Postoperative ileus Status: Chronic Condition Stable. Time Spent: < 30 min Exam Sepsis Risk: No Definite Risk BUSTER TOTH MD Sep 18, 2017 07:07
[2017-09-18 07:59] VITALS: BP 104/67
--- NOTE | 2017-09-18 08:32 | RADIOLOGY IMAGING REPORT ---
FACILITY: [facility] PATIENT NAME: Shady Vargas : 1945 MR: [id number] V: [id number] EXAM DATE: ORDERING PHYSICIAN: BUSTER TOTH TECHNOLOGIST: Location: [facility] Patient: Shady Vargas : 1945 Visit/Account:[id number] Date of Sevice: 09/18/2017 Exam type: KUB SINGLE VIEW ABDOMEN History: ileus Comparison: September 17, 2017. Findings: Persistently dilated loops of small bowel are seen throughout the mid and upper abdomen. These appea r slightly more distended when compared to yesterday's study although there is now more bowel gas adrianna ntified in the nondistended right-sided the colon proximal descending colon and sigmoid colon skin st aples project in the midline of the lower abdomen and pelvis. An ostomy ring projects in left lower quadrant IMPRESSION: 1. Persistently dilated loops of small bowel are again seen throughout the mid and upper abdomen x-r ay appear more dilated when compared to yesterday's study. There is however more bowel gas seen in t he nondistended right-sided the colon, proximal descending colon and sigmoid colon Report Dictated By: Joi Ospina MD at 09/18/2017 8:25 AM Report E-Signed By: Joi Ospina MD at 09/18/2017 8:28 AM WSN:[email or web address]
[2017-09-18] MEDS: ENOXAPARIN 40 MG/0.4ML SYR SC SCH (09:05)
[2017-09-18] MEDS: GABAPENTIN 300 MG CAP PO SCH ×3 (09:06→21:20)
[2017-09-18] MEDS: DOCUSATE SODIUM 100 MG CAP PO SCH ×2 (09:06→21:20)
[2017-09-18] MEDS: PANTOPRAZOLE SOD 40 MG IV VIAL IVP SCH (09:06)
[2017-09-18 11:28] VITALS: BP 102/79
[2017-09-18] MEDS: [UNRECOGNIZED DRUG - OTHER] IV SCH (11:57)
[2017-09-18 14:34] VITALS: BP 115/80
[2017-09-18] MEDS: FAT EMULSION 20% 250 ML BAG 250 ML IVPB SCH (16:01)
[2017-09-18 18:45] VITALS: BP 124/82
[2017-09-19] VITALS (7 sets, daily range): BP systolic 102–119; BP diastolic 70–82
[2017-09-19 06:01] LABS: PLATELET COUNT, AUTOMATED 239 K/uL (150-450)
[2017-09-19] MEDS ORDERED: HYDROmorphone HCL 2 MG/ML SDV IVP PRN (06:40)
[2017-09-19] MEDS ORDERED: BENZONATATE 100 MG CAP PO PRN (06:45)
--- NOTE | 2017-09-19 06:47 | General Surgery Progress Note ---
Subjective Progress Notes Subjective Main complaint this morning is a cough over the last 3 days. Bringing up some mucus. No abdominal pain. Passing gas and stool in stoma bag. No N/V. Doesn' t feel bloated. 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 add bowel reg remove kendall catheter saline lock IVFs. check labs today 09/08 POD3 Cano's procedure for sigmoid volvulous path is still pending NPO, IVFs, NGT with high output, AROBF will start TPN today ambulate, PT/OT consult f/u labs 09/09/17: POD#4. Doing well. Ileus improving but KUB still with with dilated loops of small bowel. Will start NG clamp trials today and if he does well with these will remove the NG tube tomorrow morning. Will start TPN today. Rads unable to place PICC yesterday as the radiologist that was here didn't do that procedure. Continue IS, pulmonary hygiene, PT/OT, ambulation, etc. 09/10/17: POD#5. Improving. NG removed and clear diet started last night. KUB this morning with some improving SB dilation. Will continue clear diet today. Hold off on PICC placement/TPN as I'm hopeful to start regular diet in next day or so. O/W CCM. 09/11/17: POD#6. Ileus worsened yesterday. Attempts at NG placement have not been successful. If we need an NG, may need to sedate him but will hold off for now. If N/V continues then will reapproach NG tube placement. Will place PICC line today and start TPN. NPO, bowel rest. Await improvement of ileus. Will need to follow surgical incision closely for increasing signs of infection as it is a little red this morning. 09/12/17: POD#7. Improving. KUB looks a little better. Stoma function improving. Continue bowel rest and will go very still and follow his KUBs as the previous 2 attempts at advancing his diet have led to increased distension with N/V. Continue TPN. Incision is stable, will follow for drainage or worsening erythema. CCM. 09/13/17: POD#8. Patient is doing well but his KUB shows a little bit more small bowel distention this morning. We'll continue bowel rest and TPN. We'll follow his KUBs as well as his clinical exercise. Otherwise we'll continue current management. 09/14/17: POD#9. Doing well but KUB still with dilated small bowel. There are small hard stools in bag. Will start colace and miralax today and see if this helps. O/W, continue with bowel rest and TPN. 09/15/17: POD#10. Doing well but KUB still with dilated small bowel without much improvement. Continue colace and miralax and bowel rest and TPN. He can have diabetic hard candy. Will continue to follow KUBs. Ambulate, pulmonary hygiene, PPI, lovenox. 09/16/17: POD#11. Doing well. Still with some dilated loops fo small bowel. Exam is benign and his stoma is functional. Will try limited volume clear diet. Continue colace, miralax, TPN, PPI, lovenox, ambulation, pulmonary hygiene, etc. 09/17/17: POD#12. Doing well. KUB not done yet as he had a stoma bag blow out and staff was cleaning him up when x-ray came by. Exam is benign and stoma has good output. If KUB looks improved then will advance to unlimited clear diet. Continue colace, will stop miralax. Continue TPN, PPI, lovenox, ambulation, pulmonary hygiene, etc. 09/18/17: POD#13. Doing well. KUB still with dilated loops of small bowel. Pt feeling so good this morning and his abdominal exam is benign and he's very hungry with good stoma output. Will advance diet to full liquid diet and patient advised to start slow and stop if he becomes bloated or nauseated. Continue colace. Continue TPN until tolerating regular diet. Continue PPI, lovenox, pulmonary hygiene, ambulation, etc. 09/19/17: POD#14. Doing well. Tolerating full liquid diet. Will start regular diet today and start to come down on TPN rate. Continue colace, PPI, lovenox, pulmonary hygiene, ambulation. Will stop TPN when tolerating diet. Will remove adilson later today. Possibly home in 2 days, will need to arrange home health nursing to help him with stoma care. Will give him an antitussive at his request and will check a CXR today. No oxygenation issues or fevers. (2) Postoperative ileus Status: Chronic Condition Stable. Time Spent: < 30 min Exam Sepsis Risk: No Definite Risk BUSTER TOTH MD Sep 19, 2017 06:47
[2017-09-19] MEDS ORDERED: INSULIN HUM REG 100 UN/ML 3 ML 20 UNIT, MULTIVITAMINS(*) 10 ML VIAL 10 ML, TRACE METALS... IV SCH (07:10)
[2017-09-19] MEDS: 1: INS HUM REG* 100 U/ML(ER ONLY) 10 UNIT, MULTIVITAMINS(*) 10 ML VIAL 10 ML, TRACE META IV SCH ×2 (07:34→20:36)
[2017-09-19] MEDS: GABAPENTIN 300 MG CAP PO SCH ×3 (08:24→20:34)
[2017-09-19] MEDS: DOCUSATE SODIUM 100 MG CAP PO SCH (08:24)
[2017-09-19] MEDS: ENOXAPARIN 40 MG/0.4ML SYR SC SCH (08:25)
--- NOTE | 2017-09-19 09:24 | RADIOLOGY IMAGING REPORT ---
FACILITY: [facility] PATIENT NAME: Shady Vargas : 1945 MR: [id number] V: [id number] EXAM DATE: ORDERING PHYSICIAN: BUSTER TOTH TECHNOLOGIST: Location: [facility] [place] Patient: Shady Vargas : 1945 Visit/Account:[id number] Date of Sevice: 09/19/2017 2 VIEWS CHEST INDICATION: Productive cough COMPARISON: Examination of the chest from September 05 FINDINGS: Cardiac silhouette is within normal limits, stable compared prior exam. Mild linear prominence of th e perihilar interstitium without alveolar consolidation, effusion or pneumothorax. The overall abraham es do not appears significantly different as compared to previous x-ray. Left-sided PICC line termin ates central portion superior vena cava. IMPRESSION: 1. Similar to prior examination, mild central bronchitic and interstitial changes suspicious for acu te/chronic bronchitis. No evidence of a new focal pneumonia. Report Dictated By: Cedrick Miles MD at 09/19/2017 9:17 AM Report E-Signed By: Cedrick Miles MD at 09/19/2017 9:20 AM WSN:[id number]
[2017-09-19] MEDS ORDERED: ALBUTEROL/IPRATROPIUM 3 ML NEB NEB PRN (10:10)
--- NOTE | 2017-09-19 12:24 | Medical Nutrition Therapy ---
Nutrition Anthropometrics Height (Inches): 80.00 Height (Calculated Centimeters: 203.039183 Weight (Pounds): 245 Weight (Calculated Kilograms): 111.215 Miller Nutrition Score: Adequate Miller Nutrition Risk Score: 17 Dietary Referral Nutrition Risk Factors: Nutrition Risk Comment: Physical Findings Physical Appearance: Overweight BMI 25-29 Skin Appearance Skin Appearance: Edema Edema Location Modifier: Left Edema Location: Type of Edema: Degree of Edema: Gastrointestinal Symptoms GI Symtoms: Change in Bowel Pattern Tube Present: NG Bowel Sounds: Recent Bowel Pattern: Constipated Stool Characteristics: Nutritional Diagnosis Nutritional Risk Acuity 1: TPN/PPN Nutritional Risk Acuity 2: Head/Neck/GI Cancer, New Colostomy Nutritional Risk Acuity 3: Fair Appetite Nutritional Risk Acuity 4: Stable Weight Nutritional Acuity: 1-High Nutrition Diagnosis: Inadequate Food Intake, Altered GI Function Nutrition Etiology: Physiological Causes Nutrition Problem/Etiology/Sym: Altered GI function r/t dx SBO AEB new colostomy. Energy Requirement: 2617 Protein Requirement: 110 Fluid Requirement: 2617 Diet Type: Diet as Tolerated BETH/REG, TPN/PPN Nutrition Intervention: Encourage intake, Incr diet as tolerated Nutritional Support Current Enteral / Parental: TPN Rate: Clinimex 5%AA + 20% Dex at 75 mL/hr plus 250mL of 20% lipid Current Duration: 24 Current Calories: 1584 Current Protein: 90 Current Lipids Calories: 500 Total Current Calories: 2084 Nutrition Monitoring & Eval Nutrition Goals: Eat 50-100% Meal RD Patient Assessment Time: [address] Assessment Type: RD Re-Assessment Patient Nutrition Acuity: 1-High Follow Up Date: Sep 21, 2017 Nutritional Comment: 09/06 Pt admitted with SBO. Pt recieved surgery and now has new colostomy. Pt is curretnly undergoing tX for prostrate CA. Pt is passing gas from stoma and has hypoactive bowel sounds. Pt is NPO. Alb 3.5, BG elevated up to 177. Will cont to monitor and provide eduation for colostomy when appropriate. BK 09/08 Today pt. is starting TPN Clinimex 5%AA + 20% Dex. with final rate of 83mL/hr plus 500kcal lipid. Recommend increasing to 100mL/hr Clinimex 5% + 20% Dex plus 500 kcal lipid for total of 2260 kcal. This would provide 100% kcal and 109% protein needs. Pt. still experiencing hypoactive bowel sounds with distention. Alb. low at 3.2 and Na 134. BG was running higher 161-177 but today 124. Still plan to provide education on new colostomy. Will continue to monitor labs, wt. changes and TPN. - SP 09/11 Pt. ileus worsened, vomited last night but feeling a bit better today. Dr noted unable to place NG tube so pt NPO, starting TPN with PICC line this afternoon. On bowel rest, hypoactive and distended. No new alb. levels; WBC, Hct, Na low and CO2 high. BG also high at 123. Pt. on insulin. Current TPN Pt is getting 87% kcal and 90% protein needs. Recommend increasing TPN to 100mL/hr Clinimex 5% + 20% Dex plus 500kcal lipid for total of 2612 kcal. This would provide 100% kcal and 109% protein needs. Will monitor TPN, wt. changes and labs. -SP 09/12 Pt cont on TPN. Rate has increased to 100ml/hr plus lipids which provided 2612 kcal and 120gm protein. This meets 100% est kcal and 109% est protein needs. Wt is stable. 09/16 Pt cont on TPN plus limited volume clear liquids. TPN rate remains at 100ml/hr Clinimix E 5-20, meeting calorie and protein needs. Wt stable. Glucose ranging from 121-137. Low H/H, Na 135. Alb. 2.8. Hypoactive bowel, distended, stoma functional. Will cont to monitor TPN, wt, labs and diet advancement. -SP 09/19 Pt now on BETH w/ TPN until reg. diet fully tolerated. TPN rate reduced to 75ml/hr Clinimix E 5-20 w/ 250ml lipid, providing total of 2084 kcal (80% kcal needs) and 90g protein (82% pro needs). So far, pt. eating 100% of reg. diet since BKF but no intake yet for lunch. Seems to be meeting kcal needs w/ TPN. BG 127-173 w/ insulin. H/H, Na+ still low but trending upward. GI function seems to be improving - flatus present, hyperactive bowel. notes pt may be discharged in 2 days. Will cont. to monitor diet advancement. - NEETU DUDLEY Sep 19, 2017 11:16
[2017-09-19] MEDS: FAT EMULSION 20% 250 ML BAG 250 ML IVPB SCH (15:35)
[2017-09-20 02:36] VITALS: BP 121/78
[2017-09-20] MEDS: INSULIN HUM LISPRO 100 UN/ML 3 ML VIAL SUBQ PRN (06:01)
[2017-09-20 07:22] VITALS: BP 111/77
[2017-09-20] MEDS: PANTOPRAZOLE SOD 40 MG TABEC PO SCH (07:26)
[2017-09-20] MEDS: GABAPENTIN 300 MG CAP PO SCH ×3 (08:23→20:16)
[2017-09-20] MEDS: ENOXAPARIN 40 MG/0.4ML SYR SC SCH (08:23)
--- NOTE | 2017-09-20 11:08 | General Surgery Progress Note ---
Subjective Progress Notes Subjective Tolerating regular diet, he has no complaints. "I look forward to going home tomorrow." Physical Exam Vital Signs Date Time Temp Pulse Resp B/P (MAP) Pulse Ox O2 Delivery O2 Flow Rate FiO2 09/20/17 07:31 93 Nasal Cannula 1.0 09/20/17 07:22 97.8 83 15 111/77 (88) Intake and Output 09/21/17 07:00 Intake Total 720 ml Output Total 300 ml Balance 420 ml Intake Oral 720 ml Stool Total 300 ml General Appearance: Alert, Awake, No Acute Distress, Afebrile Neuro: No Gross deficits ENT: Moist Mucous Membranes Cardiovascular: Regular Rate and Rhythm Respiratory: No Respiratory Distress, Clear to Auscultation GI: Soft and Non-Tender (Stoma functioning well. 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 add bowel reg remove kendall catheter saline lock IVFs. check labs today 09/08 POD3 Cano's procedure for sigmoid volvulous path is still pending NPO, IVFs, NGT with high output, AROBF will start TPN today ambulate, PT/OT consult f/u labs 09/09/17: POD#4. Doing well. Ileus improving but KUB still with with dilated loops of small bowel. Will start NG clamp trials today and if he does well with these will remove the NG tube tomorrow morning. Will start TPN today. Rads unable to place PICC yesterday as the radiologist that was here didn't do that procedure. Continue IS, pulmonary hygiene, PT/OT, ambulation, etc. 09/10/17: POD#5. Improving. NG removed and clear diet started last night. KUB this morning with some improving SB dilation. Will continue clear diet today. Hold off on PICC placement/TPN as I'm hopeful to start regular diet in next day or so. O/W CCM. 09/11/17: POD#6. Ileus worsened yesterday. Attempts at NG placement have not been successful. If we need an NG, may need to sedate him but will hold off for now. If N/V continues then will reapproach NG tube placement. Will place PICC line today and start TPN. NPO, bowel rest. Await improvement of ileus. Will need to follow surgical incision closely for increasing signs of infection as it is a little red this morning. 09/12/17: POD#7. Improving. KUB looks a little better. Stoma function improving. Continue bowel rest and will go very still and follow his KUBs as the previous 2 attempts at advancing his diet have led to increased distension with N/V. Continue TPN. Incision is stable, will follow for drainage or worsening erythema. [facility]. 09/13/17: POD#8. Patient is doing well but his KUB shows a little bit more small bowel distention this morning. We'll continue bowel rest and TPN. We'll follow his KUBs as well as his clinical exercise. Otherwise we'll continue current management. 09/14/17: POD#9. Doing well but KUB still with dilated small bowel. There are small hard stools in bag. Will start colace and miralax today and see if this helps. O/W, continue with bowel rest and TPN. 09/15/17: POD#10. Doing well but KUB still with dilated small bowel without much improvement. Continue colace and miralax and bowel rest and TPN. He can have diabetic hard candy. Will continue to follow KUBs. Ambulate, pulmonary hygiene, PPI, lovenox. 09/16/17: POD#11. Doing well. Still with some dilated loops fo small bowel. Exam is benign and his stoma is functional. Will try limited volume clear diet. Continue colace, miralax, TPN, PPI, lovenox, ambulation, pulmonary hygiene, etc. 09/17/17: POD#12. Doing well. KUB not done yet as he had a stoma bag blow out and staff was cleaning him up when x-ray came by. Exam is benign and stoma has good output. If KUB looks improved then will advance to unlimited clear diet. Continue colace, will stop miralax. Continue TPN, PPI, lovenox, ambulation, pulmonary hygiene, etc. 09/18/17: POD#13. Doing well. KUB still with dilated loops of small bowel. Pt feeling so good this morning and his abdominal exam is benign and he's very hungry with good stoma output. Will advance diet to full liquid diet and patient advised to start slow and stop if he becomes bloated or nauseated. Continue colace. Continue TPN until tolerating regular diet. Continue PPI, lovenox, pulmonary hygiene, ambulation, etc. 09/19/17: POD#14. Doing well. Tolerating full liquid diet. Will start regular diet today and start to come down on TPN rate. Continue colace, PPI, lovenox, pulmonary hygiene, ambulation. Will stop TPN when tolerating diet. Will remove adilson later today. Possibly home in 2 days, will need to arrange home health nursing to help him with stoma care. Will give him an antitussive at his request and will check a CXR today. No oxygenation issues or fevers. 09/20/17: POD#15. Tolerating diet, good stoma function. Will DC TPN. Encouraged to ambulate. CXR negative for infiltrate. DC planning for am. (2) Postoperative ileus Status: Chronic Time Spent: < 30 min Exam Sepsis Risk: No Definite Risk DOYLE GRUBBS MD Sep 20, 2017 11:08
[2017-09-20 11:49] VITALS: BP 89/61
[2017-09-20 14:54] VITALS: BP 94/72
[2017-09-20 19:08] VITALS: BP 117/79
[2017-09-20 23:31] VITALS: BP 117/83
[2017-09-21 04:17] VITALS: BP 110/75
[2017-09-21] MEDS: PANTOPRAZOLE SOD 40 MG TABEC PO SCH (05:36)
[2017-09-21 07:18] VITALS: BP 101/74
[2017-09-21] MEDS: GABAPENTIN 300 MG CAP PO SCH (08:45)
[2017-09-21] MEDS: ENOXAPARIN 40 MG/0.4ML SYR SC SCH (08:45)
--- NOTE | 2017-09-21 08:53 | Short(Outpt) Discharge Summary ---
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 add bowel reg remove kendall catheter saline lock IVFs. check labs today 09/08 POD3 Cano's procedure for sigmoid volvulous path is still pending NPO, IVFs, NGT with high output, AROBF will start TPN today ambulate, PT/OT consult f/u labs 09/09/17: POD#4. Doing well. Ileus improving but KUB still with with dilated loops of small bowel. Will start NG clamp trials today and if he does well with these will remove the NG tube tomorrow morning. Will start TPN today. Rads unable to place PICC yesterday as the radiologist that was here didn't do that procedure. Continue IS, pulmonary hygiene, PT/OT, ambulation, etc. 09/10/17: POD#5. Improving. NG removed and clear diet started last night. KUB this morning with some improving SB dilation. Will continue clear diet today. Hold off on PICC placement/TPN as I'm hopeful to start regular diet in next day or so. O/W CCM. 09/11/17: POD#6. Ileus worsened yesterday. Attempts at NG placement have not been successful. If we need an NG, may need to sedate him but will hold off for now. If N/V continues then will reapproach NG tube placement. Will place PICC line today and start TPN. NPO, bowel rest. Await improvement of ileus. Will need to follow surgical incision closely for increasing signs of infection as it is a little red this morning. 09/12/17: POD#7. Improving. KUB looks a little better. Stoma function improving. Continue bowel rest and will go very still and follow his KUBs as the previous 2 attempts at advancing his diet have led to increased distension with N/V. Continue TPN. Incision is stable, will follow for drainage or worsening erythema. CCM. 09/13/17: POD#8. Patient is doing well but his KUB shows a little bit more small bowel distention this morning. We'll continue bowel rest and TPN. We'll follow his KUBs as well as his clinical exercise. Otherwise we'll continue current management. 09/14/17: POD#9. Doing well but KUB still with dilated small bowel. There are small hard stools in bag. Will start colace and miralax today and see if this helps. O/W, continue with bowel rest and TPN. 09/15/17: POD#10. Doing well but KUB still with dilated small bowel without much improvement. Continue colace and miralax and bowel rest and TPN. He can have diabetic hard candy. Will continue to follow KUBs. Ambulate, pulmonary hygiene, PPI, lovenox. 09/16/17: POD#11. Doing well. Still with some dilated loops fo small bowel. Exam is benign and his stoma is functional. Will try limited volume clear diet. Continue colace, miralax, TPN, PPI, lovenox, ambulation, pulmonary hygiene, etc. 09/17/17: POD#12. Doing well. KUB not done yet as he had a stoma bag blow out and staff was cleaning him up when x-ray came by. Exam is benign and stoma has good output. If KUB looks improved then will advance to unlimited clear diet. Continue colace, will stop miralax. Continue TPN, PPI, lovenox, ambulation, pulmonary hygiene, etc. 09/18/17: POD#13. Doing well. KUB still with dilated loops of small bowel. Pt feeling so good this morning and his abdominal exam is benign and he's very hungry with good stoma output. Will advance diet to full liquid diet and patient advised to start slow and stop if he becomes bloated or nauseated. Continue colace. Continue TPN until tolerating regular diet. Continue PPI, lovenox, pulmonary hygiene, ambulation, etc. 09/19/17: POD#14. Doing well. Tolerating full liquid diet. Will start regular diet today and start to come down on TPN rate. Continue colace, PPI, lovenox, pulmonary hygiene, ambulation. Will stop TPN when tolerating diet. Will remove adilson later today. Possibly home in 2 days, will need to arrange home health nursing to help him with stoma care. Will give him an antitussive at his request and will check a CXR today. No oxygenation issues or fevers. 09/20/17: POD#15. Tolerating diet, good stoma function. Will DC TPN. Encouraged to ambulate. CXR negative for infiltrate. DC planning for am. 09/21/17: POD#16. Doing well. Tolerating diet. Will d/c to home today. Home health nursing is set up for continued stoma care education and help at home. (2) Postoperative ileus Status: Chronic Departure Discharge to: Home, Home Health Discharge Instructions Home Meds Reported Medications Ibuprofen (IBUPROFEN) 800 Mg Tablet, 1 TAB PO BID Y for PAIN, #30 TAB 06/12/17 Multivitamin (MEN'S MULTI-VITAMIN) 1 Each Tablet, 1 EACH PO 06/06/17 Rosuvastatin Calcium (CRESTOR) 20 Mg Tablet, 20 MG PO QDAY 06/06/17 Amlodipine Besylate (AMLODIPINE BESYLATE) 5 Mg Tablet, 1 TAB PO QDAY, TAB 06/06/17 Levothyroxine Sodium (LEVOTHYROXINE SODIUM) 100 Mcg Tablet, 112 MCG PO QDAY, TAB 06/06/17 Metformin Hcl (METFORMIN HCL) 1,000 Mg Tablet, 1 TAB PO BID, TAB 06/06/17 Oxybutynin Chloride (OXYBUTYNIN CHLORIDE) 5 Mg Tablet, 5 MG PO QDAY, TAB 06/06/17 Prednisone 10 Mg Tab (PREDNISONE 10 MG TAB) 10 Mg Tablet, 5 MG PO QDAY, #3 TAB 06/06/17 Follow up Referrals: General Surgery - 09/26/17 @ Surgery, General with Buster Toth Md You have a follow up appointment scheduled with Dr. Toth on 09/26/17, at 12:00pm. Diet: Regular Activity: No Heavy Lifting Special Instructions: You may shower or bathe as desired. Avoid any activity that involves straining or lifting more than 10 pounds until 6 weeks after surgery. BUSTER TOTH MD Sep 21, 2017 08:53
== END 2017-09-21 12:30 | disposition home health service (06) | DRG 331 ==
LOC: ER 10:17 → MED 14:11
PROVIDERS: ADMIT Surgery; ATTEND Surgery
PROC: 0D1M0Z4 Bypass Descending Colon to Cutaneous, Open Approach (ICD-10-PCS; 2017-09-05)
PROC: 3E0436Z Introduction of Nutritional Substance into Central Vein, Percutaneous Approach (ICD-10-PCS; 2017-09-05)
PROC: 0DTN0ZZ Resection of Sigmoid Colon, Open Approach (ICD-10-PCS; principal; 2017-09-05 19:00)
PROC: 02HV33Z Insertion of Infusion Device into Superior Vena Cava, Percutaneous Approach (ICD-10-PCS; 2017-09-11)
PROC: B548ZZA Ultrasonography of Superior Vena Cava, Guidance (ICD-10-PCS; 2017-09-11)
DX: K56.2 Volvulus (principal); C61 Malignant neoplasm of prostate; E11.9 Type 2 diabetes mellitus without complications; I10 Essential (primary) hypertension; G47.33 Obstructive sleep apnea (adult) (pediatric); E78.5 Hyperlipidemia, unspecified; K56.7 Ileus, unspecified; E03.9 Hypothyroidism, unspecified; Z87.891 Personal history of nicotine dependence; Z88.8 Allergy status to other drugs, medicaments and biological substances; Z96.653 Presence of artificial knee joint, bilateral
CPT/HCPCS: 36415; 36416; 36569; 71046; 74018; 74177; 76937; 81001; 82040; 82150; 82247; 82248; 82310; 82374; 82435; 82565; 82947; 82948; 83605; 83690; 84075; 84132; 84155; 84295; 84450; 84460; 84520; 85025; 87040; 88307; 96361; 96374; 96375; 96376; 97161; 97165; 99284; A4406; C1751; C9113; J0131; J0694; J1100; J1170; J1630; J1644; J1650; J1815; J2001; J2060; J2270; J2405; J2550; J2704; J2795; J3010; J3475; J3480; J3490; J7030; J7040; P9045; Q9967

== ENCOUNTER → 2017-10-16 | Outpatient (RCR) | payer MEDICARE, BC ==
--- NOTE | 2017-07-22 21:21 | ONCOLOGY CONSULTATION ---
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 Tumor occupying four of 12 core biopsy specimens on biopsy date June 12, 2017. Palpable 2 cm nodularity in the right lobe of the prostate. Pre-biopsy PSA of 5.3 ng/mL on April 16, 2017. HISTORY OF PRESENT ILLNESS This is a pleasant 71-year-old gentleman who was referred to me by Dr. Nguyen to discuss radiation therapy treatment options for newly diagnosed prostate cancer. The patient's primary physician is Dr. Solis in [place]. On recent clinical examination he was found to have a palpably abnormal gland and correlating elevated PSA at 5.3 ng/mL. The specimen was collected on April 16, 2017. According to the patient his PSA has previously been stable in the 2- 3 range. He denies any recent changes in voiding pattern or any dysuria. Patient was referred to Dr. Nguyen who confirmed a palpably abnormal prostate gland, highly suspicious for malignancy. The patient was advised to have an ultrasound-guided biopsy of the prostate, which as performed on June 12, 2017. Biopsy revealed Thayer 3+4=7 moderate to poorly differentiated adenocarcinoma of the prostate involving 50% of the right base, 50% of the right lateral base, 30% of the right lateral middle, 20% of the right lateral apex. The remainder of the biopsy specimens were all remarkable (total 4/12). The patient underwent staging CT scan of the abdomen and pelvis on June 23, 2017. He also had a bone scan on the same date. The bone scan was negative. CT scan reveals prostate enlargement. The gland is described as heterogeneous and quite large. Degenerative changes in the spine. No signs of any pelvic or periaortic lymphadenopathy. Dr. Nguyen has discussed options with the patient and he is interested in exploring radiation therapy options further and is seen for initial consultation today. No family history of prostate carcinoma. Patient generally states he gets up once at night and has a fairly normal voiding pattern during the day. No recent changes. CURRENT MEDICATIONS 1. MVI. 2. Crestor 20 mg q.day. 3. Amlodipine 5 mg q.day. 4. Levothyroxine 100 mcg q.day. 5. Metformin 1000 mg q.day. 6. Oxybutynin 5 mg q.day. 7. Prednisone 5 mg q.day. PAST MEDICAL HISTORY 1. Type 2 diabetes. 2. DJD. 3. COPD. PAST SURGICAL HISTORY 1. Cataract surgery, 2017. 2. Spine surgery, 2011 and 2017 in [place]. 3. Bilateral knee replacement, 2011. FAMILY HISTORY Notable for son who had colon cancer, metastatic to liver at age 38. He fortunately is now in remission. SOCIAL HISTORY Patient is retired. 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 He is . He has one son, age 45. His son lives locally in [place]. Patient does not drink alcohol. He does have a history of smoking one half to one pack per day up until 1974. REVIEW OF SYSTEMS Patient denies any weight loss or excessive fatigue. He does have a history of peripheral neuropathy and relates a partial history of some type of spinal impingement which required surgery times two in [place]. He does have a history of left ankle fractures from a fall. Occasionally bruises easily. Baseline nocturia times one. AUA score score was low at 3. No GI complaints. Neurologic: He has some mild decrease in hearing otherwise. Denies any anxiety or depression. He stated he did have significant neuropathy which was improved after his last spinal surgery. PHYSICAL EXAMINATION GENERAL: A pleasant 71-year-old male of tall build. VITAL SIGNS: Height 80 inches, weight 253. BP 109/66, pulse 68, respirations 16, O2 sat 91%. LYMPH NODE: No lymphadenopathy. LUNGS: Clear bilaterally. HEART: Sounds regular with no audible murmur. ABDOMEN: Soft. No gross organomegaly. RECTAL: Exam reveals markedly enlarged gland with palpable nodule over the right lobe of the prostate. I estimate the size of the nodule, which is raised and nontender, at approximately 2 x 1.5 cm. This does extend to the peripheral zone II of the right lobe of the gland. EXTREMITIES: Reveal trace edema in the left ankle, otherwise normal. NEUROLOGIC: Exam is grossly intact. IMPRESSION This is a pleasant 71-year-old gentleman who recently was found by primary care to have an abnormal rectal examination along with an elevation in his PSA. He was subsequently found to have a moderate to poorly differentiated adenocarcinoma of the right lobe of the prostate, which was confirmed by ultrasound-guided biopsy. Four of the six biopsy core specimens are positive for malignancy on the right lobe. All six biopsy specimens were negative on the left lobe. No signs of metastatic disease on the CT scan and bone scan staging. I subsequently reviewed two treatment options with Mr. Vargas today. His relative risk for extracapsular extension is fairly high and estimated at the 40 % to 60% range, and based on the clinical features of his tumor I would favor ADT plus external jim radiotherapy, or ADT plus external jim radiotherapy and brachytherapy boost. The patient will need to start on Lupron therapy shortly for cytoreduction of the prostate. A prescription for bicalutamide will also be phoned in for the first 30 days to prevent flare response. Literature is available from two large randomized trials from this month which were performed in [place], looking at radiation hypofractionation versus standard fractionation regimens. This would be entirely appropriate for this patient and patients who have a commute of 90-120 minutes per day. The trials looked at 74 Gy of standard fractionation over eight weeks, versus 60 Gy over four weeks, or 57 Gy and 19 fractions. For intermediate risk prostate cancer patients with low urologic symptom score, the five-year biochemical disease for survival is 87% to 90%. These patients were treated with six months of hormone therapy as well. The figures are comparable to surgery. The patient states he would like to proceed with the nonoperative treatment option. I therefore went through two programs with the patient today, which should be effective for his malignancy. The first program is external beam radiotherapy with IMRT covering the prostate to 50 Gy in 20 fractions at 2.5 Gy/fraction with a wide margin of 2 cm lateral on the prostate and tighter margins on the rectum and bladder anteriorly and posteriorly. A field reduction boost would then be performed to treat the prostate to 60-66 Gy with radiation dose equivalents to the clinical trials. That boost phase would take approximately eight to 10 fractions to complete. The alternative is to perform the external beam radiotherapy to 50 Gy in 20 fractions as stated above, and then proceed with high dose brachytherapy boost with Palladium-103 seeds approximately six to eight weeks later. That program would produce a high radiotherapy dose intrinsically to the gland, particularly in the left lobe, although there would be an increase in urinary urgency and frequency. The pros and cons of each approach were reviewed with the patient. The phase three trial data revealed that 2% rectal grade 3 irritation symptoms and 8% urinary frequency or urgency. In the majority of cases the patient can be successfully treated with the addition of Flomax for any urgency symptoms, and rectal complications can be minimized with fairly tight margins using our CT cone-beam treatment technique. The patient expressed an understanding of the options that were presented to him today. He would like to proceed with the targeting simulation. This will take place later today. Radiation course will tentatively start on July 14. I would like the patient to initiate the Lupron this Friday, and my nurse is contacting Dr. Nguyen's office to coordinate an injection in [place] of 7.5 mg IM q.30 days times six months. Initial prescription was phoned in for the bicalutamide at 50 mg q.day for 30 days. I wish to thank Dr. Nguyen for the referral and opportunity to discuss therapeutic options with this patient today. I am appreciative of the fact that Dr. Solis found the malignancy before distant dissemination was noted, as this appears to be a locally aggressive Girma 7 cancer. All questions were answered to the patient's satisfaction. A signed consent was obtained for treatment today. HOANG
[2017-08-20 07:16] VITALS: BP 124/93
[2017-08-20 07:22] LABS: PLATELET COUNT, AUTOMATED 182 K/uL (150-450)
[2017-09-05 08:51] LABS: PLATELET COUNT, AUTOMATED 185 K/uL (150-450)
--- NOTE | 2017-09-05 09:03 | Oncology Progress Note ---
History of Present Illness Evaluation Evaluation Date: Sep 05, 2017 Evaluation Time: 08:45 Accompanied by Accompanied by: Self Last seen by : Prieto 09/02/2017 Chief Complaint Chief Complaint Bilateral lower quadrant Abdominal Pain level >10 (0-10 scale)and Vomiting Oncology History Oncology History Diagnosis: Primary C61 - PROSTATIC ADENOCARCINOMA. BRYN 7; 4/12 CORES, OCCUPYING 20-50% OF TCV, Diagnosed 06/12/2017 (Active) , Past History: Medical History: COPD, cataracts, diabetes and hypercholesterolemia. Procedure/Surgical History: back surgery/bone spur removal in 03/2016, back surgery/bone spur removal in 04/2017, bilateral knee replacement in 2011 and cataracts in 12/2016. Last screened on 07/23/2017 - Yes - but has quit for 43 years. Smoked for 85 years. Never drank. Contact indicated with the following hazardous materials: coal. Pt. is and pt. has 1 adult son. 07/22/2017 This is a pleasant 72-year-old gentleman who was referred to me by Dr. Nguyen to discuss radiation therapy treatment options for newly diagnosed prostate cancer. The patient's primary physician is Dr. Solis in [place]. On recent clinical examination he was found to have a palpably abnormal gland and correlating elevated PSA at 5.3 ng/mL. The specimen was collected on April 16, 2017. According to the patient his PSA has previously been stable in the 2- 3 range. He denies any recent changes in voiding pattern or any dysuria. Patient was referred to Dr. Nguyen who confirmed a palpably abnormal prostate gland, highly suspicious for malignancy. The patient was advised to have an ultrasound-guided biopsy of the prostate, which as performed on June 12, 2017. Biopsy revealed Bryn 3+4=7 moderate to poorly differentiated adenocarcinoma of the prostate involving 50% of the right base, 50% of the right lateral base, 30% of the right lateral middle, 20% of the right lateral apex. The remainder of the biopsy specimens were all remarkable (total 4/12). The patient underwent staging CT scan of the abdomen and pelvis on June 23, 2017. He also had a bone scan on the same date. The bone scan was negative. CT scan reveals prostate enlargement. The gland is described as heterogeneous and quite large. Degenerative changes in the spine. No signs of any pelvic or periaortic lymphadenopathy. Treatment Treatment 07/22/2017 I therefore went through two programs with the patient today, which should be effective for his malignancy. The first program is external beam radiotherapy with IMRT covering the prostate to 50 Gy in 20 fractions at 2.5 Gy/fraction with a wide margin of 2 cm lateral on the prostate and tighter margins on the rectum and bladder anteriorly and posteriorly. A field reduction boost would then be performed to treat the prostate to 60-66 Gy with radiation dose equivalents to the clinical trials. That boost phase would take approximately eight to 10 fractions to complete. - targeting simulation - Lupron in [place] of 7.5 mg IM q.30 days times six months. Initial prescription was phoned in for the bicalutamide at 50 mg q.day for 30 days. - [id number]_[id number]_Prost - Planned Dose 5,000cGy - Actual Dose 2,500cGy Verification - Planned Dose 282.7cGy 2.9 depth - Planned Dose 77.7cGy Verification1 - Planned Dose 282.7cGy C1 15 day(s) HPI HPI Mr. Shady Vargas is a 72 year old man who is Hard of Hearing and has PROSTATIC ADENOCARCINOMA. BRYN 7; 4/12 CORES, OCCUPYING 20-50% OF TCV, Diagnosed 06/12/2017. Currently being treated with Radiation therapy and Lupron injections. Patient presented to the Cancer Center today complaining of excruciating B/L lower quadrant abdominal pain, nausea and vomiting that started 3 days ago, lying down takes the edge of pain off, he has been taking Advil with no relief. Patient reports that his last bowel movement was on 2017 last Friday and it was scant amount with clear mucus output. He did vomited yesterday he's not able to isolate if these happen after eating or drinking. On physical exam patient appears ill looking, with facial pain expression, abdomen is grossly distended , hypoactive bowel sounds, he is currently afebrile, he denies cardiac type chest pain, no shortness of breath, patient is immediately sent upstairs to get a chest x-ray and abdominal x-ray obstruction serious for possible bowel obstruction and ileus. Significant PMH of COPD; Type 2 diabetes (metformin); DJD (Advil); . off note. Patient was found by primary care to have an abnormal rectal examination along with an elevation in his PSA. He was subsequently found to have a moderate to poorly differentiated adenocarcinoma of the right lobe of the prostate, which was confirmed by ultrasound-guided biopsy. Patient was initially referred to Dr. Nguyen who confirmed a palpably abnormal prostate gland, highly suspicious for malignancy. The patient was advised to have an ultrasound-guided biopsy of the prostate, which as performed on June 12, 2017. Biopsy revealed Bryn 3+4=7 Diagnostic Studies Miscellaneous/Other Medications: AmLODIPine Besylate 1 Tablet (of 5 mg) Tablet Oral daily Crestor 1 Tablet (of 20 mg) Tablet Oral daily Ibuprofen 800 mg (of 800 mg) Tablet Oral b.i.d. Levothroid 1 Tablet (of 112 mcg) Tablet Oral daily MetFORMIN HCl 1 Tablet (of 1000 mg) Tablet Oral b.i.d. Oxybutynin Chloride 1 Tablet (of 5 mg) Tablet Oral daily Prednisone 1 Tablet (of 5 mg) Tablet Oral daily multivitamin 1 Tablet Tablet daily Social/Occupational History Social History: Social History This is a 72 Yr old White male, he is M and has [] Children Hx Smoking: Yes (QUIT 1974, 1 PPD X 8 YRS) Smoking Status: Former Smoker Allergies & Medications Allergies: Coded Allergies: atorvastatin (Verified Allergy, Intermediate, "bad cramps in leg" , ) Home Meds Reported Medications Ibuprofen (IBUPROFEN) 800 Mg Tablet, 1 TAB PO BID Y for PAIN, #30 TAB 06/12/17 Multivitamin (MEN'S MULTI-VITAMIN) 1 Each Tablet, 1 EACH PO 06/06/17 Rosuvastatin Calcium (CRESTOR) 20 Mg Tablet, 20 MG PO QDAY 06/06/17 Amlodipine Besylate (AMLODIPINE BESYLATE) 5 Mg Tablet, 1 TAB PO QDAY, TAB 06/06/17 Levothyroxine Sodium (LEVOTHYROXINE SODIUM) 100 Mcg Tablet, 112 MCG PO QDAY, TAB 06/06/17 Metformin Hcl (METFORMIN HCL) 1,000 Mg Tablet, 1 TAB PO BID, TAB 06/06/17 Oxybutynin Chloride (OXYBUTYNIN CHLORIDE) 5 Mg Tablet, 5 MG PO QDAY, TAB 06/06/17 Prednisone 10 Mg Tab (PREDNISONE 10 MG TAB) 10 Mg Tablet, 5 MG PO QDAY, #3 TAB 06/06/17 Review of Systems Constitution: Positive for Other (Fevers at home) HEENT: No EARS: Tinnitus, No NOSE: Nasal Discharge, No THROAT: Sore Throat, No EYES: Dipolpia, No EARS: Hearing Problems, No NOSE: Epistaxis, No THROAT: Mouth Ulcers, No EYES: Vision Change, No OTHER Respiratory: No Cough, No Expectoration, No Hemoptysis, No Shortness of Breath , No OTHER Cardiovascular: No Chest Pain, No Orthopnea, No Edema, No Palpitations, No OTHER Gastrointestinal: Vomitting, Constipation, Abdominal Pain Gentiourinary: No Hematuria, No Dysuria, No Nocturia, No Other Musculoskeletal: Muscle Pain, Joint Pain Hematological: No Bleeding, No Weakness, No Enlarged Lyph Nodes, No Bruising, No Fatigue, No Other Skin: No Skin Rash, No Lumps, No Erythema, No Dry Skin, No Moist Skin, No Other Psychiatric: Anxiety Vital Signs Vital Signs Temperature: 97.3 Pulse: 60 BP Systolic: 154 BP Diastolic: 92 Respiratory Rate: 16 O2 SAT: 92% O2 Delivery: Room Air Height (feet) Height (inches) Weight lb: 240 Weight oz: Weight Kg ([place]): Pain: 10 ECOG-1 Strenuous physical activity restricted; fully ambulatory and able to carry out light work. Physical Exam General: Other (Ill looking) HEENT: HEAD:Atraumatic Abdomen: Hepatosplenomegaly Extremities: No Cyanosis, No Clubbing, No Edema, No Other Assessment and Plan Assessment and Plan Mr. Shady Vargas is a 72 year old man who is Hard of Hearing and has PROSTATIC ADENOCARCINOMA. BRYN 7; 4/12 CORES, OCCUPYING 20-50% OF TCV, Diagnosed 2017. Currently being treated with Radiation therapy and Lupron injections. Patient presented to the Cancer Center today complaining of excruciating B/L lower quadrant abdominal pain, nausea and vomiting that started approximately 3 days ago, lying down takes the edge of pain off, he has been taking Advil with no relief. DIAGNOSTIC DATA CBC showed WBC of 11.9; hemoglobin 16.2; hematocrit 46.9; platelet count 185; ANC 10.5; chemistry panel completely normal except for random glucose 146; BU when 19; creatinine 0.80; GFR over 60.0; PSA 8.05 as of 08/20/2017; 1. PROSTATIC ADENOCARCINOMA. BRYN 7; 4/12 CORES, OCCUPYING 20-50% OF TCV, Diagnosed 06/12/2017. Currently being treated with Radiation therapy and Lupron injections. session XRT received this am 09/05/2017. 2. Suspected Bowel Obstruction /Ileus.possible Acute effect of radiation Therapy , patient is s/p session XRT received this am 09/05/2017. patient reports scant amount of clear mucus BM last Friday09/03/17, and excruciating B/L LQ abdominal sharp pain alleviating with lying down, with vomiting. 3. Leukocytosis. WBC 11.9. Recommend Initiate broad spectrum Abx. Pip/Tazo 3.375g IVQ8 hours. afebrile Tmax 97.3. reports intermittent fevers at home. CHRONIC 1. Type 2 diabetes. on metformin 2. DJD. 3. COPD. PAST SURGICAL HISTORY 1. Cataract surgery, 2016. 2. Spine surgery, 2011 and 2016 in [place]. AND 04/2017 3. Bilateral knee replacement, 2011. PLAN Patient to Transfer to the ER Now. The following work up ordered. #1 CBC w/diff, CMP, LDH, PT /INR/ PTT,fibrinogen Magnesium, uric acid, UA, #2 ECG, chest x-ray, abdominal x-ray with obstruction series.possible Bowel obstruction/ileus, #3 Insert Kohler, collect UA, monitor I/Os #4Recomend Reglan 10mg Ivx1 #5 Recommend Morphine 4mg IV x1 #6 Recommend Initiate broad spectrum Abx. Pi/Tazo 3.375g IVQ8 hours. #7 Return to cancer center f/u appointment upon Discharge. TIME SPENT: 45 minutes 40 > minutes includes but not limited to discussion, counselling and co-ordination~ of care. Discussion with other health care providers, record review, review of lab work, diagnostic tests. Plan discussed extensively with patient. All the questions answered today. Thank you for the opportunity to be involved in the care of Sam Caruso. Billing Level: Return sick visit 5 JONH KOLB, ONC Sep 05, 2017 09:03
[2017-09-05 09:31] LABS: INR 1.04
--- NOTE | 2017-09-05 14:40 | RADIOLOGY IMAGING REPORT ---
FACILITY: [facility] - [place] PATIENT NAME: Shady Vargas : 1945 MR: [id number] V: [id number] EXAM DATE: ORDERING PHYSICIAN: JONH KOLB TECHNOLOGIST: Location: [facility] [place] Patient: Shady Vargas : 1945 Visit/Account:[id number] Date of Sevice: 09/05/2017 2 VIEWS CHEST INDICATION: Abdominal distention. COMPARISON: None available FINDINGS: Heart size within normal limits. Moderately ectatic and tortuous aorta seen with moderate atherosclerotic calcifications of the aortic knob. Mild peribronchial thickening without acute infiltrate. No lobar consolidation. There is no pneumothorax or pleural effusion. Limited views of the abdomen show air-filled distended loops of bowel within the upper abdomen. IMPRESSION: 1. Mild peribronchial thickening with no acute infiltrate. 2. Moderately ectatic and tortuous aorta seen with atherosclerotic calcifications aortic knob. Report Dictated By: Arnol Weston MD at 09/05/2017 2:36 PM Report E-Signed By: Arnol Weston MD at 09/05/2017 2:37 PM WSN:[email or web address]
--- NOTE | 2017-09-05 14:45 | RADIOLOGY IMAGING REPORT ---
FACILITY: [facility] - [place] PATIENT NAME: Shady Vargas : 1945 MR: [id number] V: [id number] EXAM DATE: ORDERING PHYSICIAN: JONH KOLB TECHNOLOGIST: Location: [facility] Patient: Shady Vargas : 1945 Visit/Account:[id number] Date of Sevice: 09/05/2017 ABDOMEN AP AND ERECT/DECUB INDICATION: Pain COMPARISON: None available FINDINGS: Prominent dilated loops of large bowel as well as small bowel in the mid lower abdomen wi th the largest dilated loop within the middle of the abdomen concerning for a sigmoid volvulus. Maxi mum dimension of this loop of bowel was 16 cm. No evidence of free air underlying the hemidiaphragms . IMPRESSION: Findings suggest sigmoid volvulus as above. Report Dictated By: Arnol Weston MD at 09/05/2017 2:39 PM Report E-Signed By: Arnol Weston MD at 09/05/2017 2:41 PM WSN:[email or web address]
[2017-10-13 14:54] VITALS: BP 126/80
[2017-10-13 15:01] LABS: PLATELET COUNT, AUTOMATED 159 K/uL (150-450)
== END ==
LOC: RAON 07-18 09:28 → SPU 10-13 14:39 → RAON 10-14 07:30
PROVIDERS: ATTEND Nurse Practitioner Family
DX: Z51.0 Encounter for antineoplastic radiation therapy (principal); C61 Malignant neoplasm of prostate; E11.9 Type 2 diabetes mellitus without complications; J44.9 Chronic obstructive pulmonary disease, unspecified; M19.90 Unspecified osteoarthritis, unspecified site
CPT/HCPCS: 36415; 71046; 74019; 77280; 77290; 77300; 77301; 77336; 77338; 77385; 82040; 82247; 82310; 82374; 82435; 82565; 82947; 83615; 83735; 84075; 84132; 84153; 84155; 84295; 84450; 84460; 84520; 84550; 85025; 85384; 85610; 86300

== ENCOUNTER 2017-11-03 07:30 | Outpatient (RCR) | payer MEDICARE, BC ==
[2017-10-13 14:54] VITALS: BP 126/80
[~2017-11-03 07:30] MED LIST changes: +AMLO-111 PO; -AMLO-96 PO; -HYDR-4308 PO; +HYDR-654 PO; -METF-421 PO; +METF-452 PO
== END 2018-01-15 ==
LOC: RAON 07:30
PROVIDERS: ATTEND Nurse Practitioner Family
DX: Z51.0 Encounter for antineoplastic radiation therapy (principal); C61 Malignant neoplasm of prostate; Z87.891 Personal history of nicotine dependence; E11.9 Type 2 diabetes mellitus without complications; E78.00 Pure hypercholesterolemia, unspecified; J44.9 Chronic obstructive pulmonary disease, unspecified; H26.9 Unspecified cataract
CPT/HCPCS: 77280; 77300; 77301; 77336; 77338; 77385; 77386; 81001; 87088

== ENCOUNTER 2018-01-26 08:34 | Outpatient (RCR) | payer MEDICARE, BC ==
[2018-01-26 08:37] VITALS: BP 142/94
[2018-02-11] MEDS ORDERED: TAMS0.4C70 PO (09:11)
[2018-02-11] MEDS ORDERED: IBUP-1687 PO (09:34)
== END 2018-02-25 14:12 | disposition home or self-care (01) ==
LOC: SPU 08:34
PROVIDERS: ATTEND Radiology Radiation Oncology
DX: C61 Malignant neoplasm of prostate (principal)
CPT/HCPCS: 36415; 84153

== ENCOUNTER 2018-01-27 10:29 | Outpatient (RCR) | payer MEDICARE, BC ==
[2018-01-27 11:02] VITALS: BP 139/86
[2018-02-11] MEDS ORDERED: TAMS0.4C70 PO (09:11)
[2018-02-11] MEDS ORDERED: IBUP-1687 PO (09:34)
== END 2018-02-20 15:38 | disposition home or self-care (01) ==
LOC: RAON 10:29
PROVIDERS: ATTEND Radiology Radiation Oncology
DX: C61 Malignant neoplasm of prostate (principal); Z93.3 Colostomy status; J44.9 Chronic obstructive pulmonary disease, unspecified; E11.9 Type 2 diabetes mellitus without complications; E78.00 Pure hypercholesterolemia, unspecified; H26.9 Unspecified cataract
CPT/HCPCS: 99212

== ENCOUNTER 2018-03-17 00:34 | Inpatient (IN) | payer MEDICARE, BC ==
[2018-03-04 09:56] LABS: PLATELET COUNT, AUTOMATED 159 K/uL (150-450)
--- NOTE | 2018-03-04 10:09 | EKG ---
FACILITY: [facility] - [place] PATIENT NAME: DAVID HERMAN : [id number] MR: [id number] V: [id number] EXAM DATE: ORDERING PHYSICIAN: EDILBERTO MELENDEZ TECHNOLOGIST: LUCIA Thomas Reason : PRE-OP Blood Pressure : / mmHG Vent. Rate : 056 BPM Atrial Rate : 056 BPM P-R Int : 206 ms QRS Dur : 100 ms QT Int : 418 ms P-R-T Axes : 013 -08 001 degrees QTc Int : 403 ms Sinus bradycardia with premature atrial complexes Inferior infarct , age undetermined Abnormal ECG When compared with ECG of 12-JUN-2017 06:33, ST now depressed in Inferior leads Nonspecific T wave abnormality now evident in Anterior leads Confirmed by BUSTER MACARIO ([id number]) on 03/04/2018 10:30:39 AM Referred By: NORA Confirmed By:BUSTER MACARIO
[2018-03-17] VITALS (12 sets, daily range): BP systolic 126–148; BP diastolic 86–104
[~2018-03-17] VITALS: Ht 203.2 cm; Wt 106.1 kg
[~2018-03-17 00:34] MED LIST changes: -AMLO-111 PO; +AMLO-125 PO; +IBUP-1687 PO; +TAMS0.4C70 PO
[2018-03-17] MEDS ORDERED: cefTRIAXone 1 GM VIAL IVP ONE (07:25)
[2018-03-17] MEDS ORDERED: SUGAMMADEX SOD 200 MG/2 ML SDV ONE ×2 (08:53→14:48)
[2018-03-17] MEDS ORDERED: DEXAMETHASONE SOD 4 MG/ML VIAL ONE (08:53)
[2018-03-17] MEDS ORDERED: ONDANSETRON 4 MG/2 ML VIAL ONE (08:53)
[2018-03-17] MEDS ORDERED: LIDOCAINE MPF 1% 5 ML VIAL ONE (08:53)
[2018-03-17] MEDS ORDERED: ROCURONIUM BROM 10 MG/ML 10 ML ONE ×2 (08:53→14:36)
[2018-03-17] MEDS ORDERED: PROPOFOL EMUL(*) 10MG/ML 20 ML 20 ML ONE (08:53)
[2018-03-17] MEDS ORDERED: fentaNYL CITR 250 MCG/5 ML AMP ONE (08:53)
[2018-03-17] MEDS ORDERED: KETAMINE HCL-NS 50 MG/5 ML SYR ONE (08:53)
[2018-03-17] MEDS ORDERED: NORMOSOL R SOLN(*) 1000 ML BAG 1,000 ML IV PRN (09:45)
[2018-03-17] MEDS ORDERED: MIDAZOLAM 2 MG/2 ML VIAL IVP PRN (09:45)
[2018-03-17] MEDS ORDERED: LIDOCAINE/SOD BICARB 8.4% SYR ID ONE (09:45)
[2018-03-17] MEDS ORDERED: metroNIDAZOLE* 500MG/100ML BAG 100 ML IVPB ONE ×2 (09:45→16:45)
[2018-03-17] MEDS ORDERED: FAMOTIDINE 20 MG TAB PO ONE (09:45)
[2018-03-17] MEDS ORDERED: cefTRIAXone(*) 1 GM VIAL 1 GM in NS(*) 0.9% 100 ML ADDVANT BAG 100 ML IVPB ONE (10:00)
[2018-03-17] MEDS ORDERED: BUPIVACAINE/EPI 0.5% 50ML VIAL INFIL ONE (10:02)
[2018-03-17] MEDS ORDERED: LABETALOL HCL 20 MG/4 ML SYR ONE (11:41)
[2018-03-17] MEDS ORDERED: DESFLURANE 240 ML BTL INH ONE (12:51)
[2018-03-17] MEDS ORDERED: HYDROmorphone HCL 2 MG/ML SDV ONE (13:21)
[2018-03-17] MEDS ORDERED: fentaNYL CITR 100 MCG/2 ML AMP ONE (16:01)
[2018-03-17] MEDS ORDERED: MORPHINE 2 MG/ML SYR IVP PRN (16:10)
--- NOTE | 2018-03-17 16:20 | Post Operative Progress Note ---
Post Operative Progress Note Date: Mar 17, 2018 Time: 16:08 Surgeon: josh ortiz md # Object Oriented Programmer: dr. morrell Anesthesia: gen, local cr. zarate Pre-Op Diagnosis: ostomy Post-Op Diagnosis: same Findings: adhesions Procedure(s): laparoscopic ostomy reversal [place] of splenic flexure lysis of adhesions >60 min Specimen Removed:(May be N/A): rectal stump, stoma, anastomotic donuts Complications: none Fluids: iv crystalloid Estimated Blood Loss: 75 ml Date OP Note Dictated: Mar 17, 2018 Time OP Note Dictated: 16:11 EDILBERTO ORTIZ Mar 17, 2018 16:20
[2018-03-17] MEDS: KETOROLAC 15 MG/ML VIAL IVP SCH (17:45)
[2018-03-17] MEDS: APAP/HYDROCODONE 325/5 TAB PO PRN ×2 (17:54→22:00)
--- NOTE | 2018-03-17 20:44 | OPERATIVE REPORT 1 ---
EVENT DATE: March 17, 2018 SURGEON: Joni Beltran MD ANESTHESIOLOGIST: Arcenio Almonte MD ANESTHESIA: General and local. ROCK LOADER: Suman Rich MD PREOPERATIVE DIAGNOSIS Colostomy status post Bryan procedure for sigmoid volvulus. POSTOPERATIVE DIAGNOSIS Colostomy status post Bryan procedure for sigmoid volvulus. PROCEDURES PERFORMED 1. Laparoscopic takedown of splenic flexure. 2. Laparoscopic ostomy reversal. 3. Laparoscopic lysis of adhesions times greater than 60 minutes. FLUIDS IV crystalloid. ESTIMATED BLOOD LOSS 75 mL SPECIMENS Rectal stump, stoma, and anastomotic donuts. COMPLICATIONS None. INDICATIONS This is a 72-year-old male status post Bryan procedure for sigmoid volvulus. Patient wishes to have the ostomy reversed. He underwent preoperative colonoscopy. Risks and benefits of the procedure were explained, and consent was signed. DESCRIPTION OF PROCEDURE Patient was taken to the operating room and placed in the supine position. General anesthesia was administered per anesthesia team. Patient prepped and draped in normal sterile fashion after he was placed in stirrups. Local analgesia was injected into the dermis below the right costal margin, and a small incision was made. Optiview technique was used easily into the abdomen. Pneumoperitoneum was achieved. A 5 mm supraumbilical port was placed as well as a 12 mm right lower quadrant port, both after injecting local analgesia and under direct vision. Later in the case, a 5 mm left subcostal port was placed in the same manner. I inspected the abdomen. There was no injury upon entry. Patient did have a lot of adhesions in his abdomen. These were taken down sharply and with some LigaSure. Lysis of adhesions was greater than 60 minutes. I then freed the colon at the ostomy of surrounding tissue laparoscopically. Attention was then turned to the rectal stump. The stitches marking the rectal stump were easily identified. LigaSure was used to free the rectal stump of surrounding tissue. This was taken down to the rectal wall. Multiple loads of the laparoscopic 60 mm linear stapler with the blue load were fired across the proximal rectum. This rectal stump was later removed with an Endo Catch bag through the ostomy site. An incision was then made around the stoma. Sharp dissection, some cautery, and some LigaSure were used to free the stoma from the abdominal wall. A linear 75 mm blue load was fired across the stoma. This was then dunked back into the abdomen. Pneumoperitoneum was re-achieved. We did not have enough length at this point for an anastomosis that would not be under tension; therefore, takedown of the splenic flexure was performed laparoscopically. The omentum was taken off the splenic flexure of the colon, and the ligaments were divided as well as the white line of Toldt until the splenic flexure was mobilized medially. At this point, we did have enough length for an anastomosis that was not under tension. The end of the colon was then brought up through the stoma site. The staple line was removed. A 2-0 Prolene pursestring stitch was placed. Sizers were used, and a 29 mm anvil was placed. The pursestring stitch was secured. This was dunked back into the abdomen. Pneumoperitoneum was re-achieved. Sizers were placed through the rectum. The 29 mm stapler was then placed through the anus and up into the rectum. Under direct vision, the spike was deployed. The anvil and spike were mated. I confirmed there was no twisting of the colon. There was no tissue. I confirmed there was no mesentery or small bowel in the way of the anastomosis. The stapler was then fired. Two complete donuts were identified. A leak test was performed, and there was no air leak. Hemostasis was assured. The irrigation was suctioned. Fascia closure device with 0 Vicryl suture was used to close the fascia of the right lower quadrant port site. A #1 PDS stitch in a running fashion was used to close the fascia at the stoma site. Subcuticular stitches of 4-0 Monocryl were used to close the laparoscopic incisions. Cristo were used to approximate the skin at the stoma site, and Telfa tera were placed between the cristo. Local analgesia was injected at the laparoscopic sites. Appropriate dressings were applied. Patient tolerated the procedure well, and there were no complications. HOANG
[2018-03-17] MEDS: DOCUSATE SODIUM 100 MG CAP PO SCH (21:27)
[2018-03-17] MEDS: GABAPENTIN 300 MG CAP PO SCH (21:28)
[2018-03-17] MEDS: MORPHINE 2 MG/ML SYR IVP PRN (21:28)
[2018-03-17] MEDS ORDERED: PROMETHAZINE 25 MG/ML 1 ML AMP IVP PRN (22:15)
[2018-03-17] MEDS ORDERED: ONDANSETRON 4 MG/2 ML VIAL IVP PRN (22:15)
[2018-03-18] VITALS: BP 148/89
[2018-03-18] MEDS: KETOROLAC 15 MG/ML VIAL IVP SCH ×5 (00:34→22:13)
[2018-03-18] MEDS: APAP/HYDROCODONE 325/5 TAB PO PRN (02:58)
[2018-03-18] MEDS: NS(*) 0.9% 1000 ML BAG 1,000 ML IV SCH ×3 (02:58→22:49)
[2018-03-18 03:00] VITALS: BP 122/89
[2018-03-18 05:50] LABS: PLATELET COUNT, AUTOMATED 160 K/uL (150-450)
--- NOTE | 2018-03-18 07:34 | General Surgery Progress Note ---
Subjective Progress Notes Subjective doing well. no acute events. pain controlled. Physical Exam Vital Signs Date Time Temp Pulse Resp B/P (MAP) Pulse Ox O2 Delivery O2 Flow Rate FiO2 03/18/18 03:00 97.9 70 122/89 (100) 93 Nasal Cannula 4.0 03/17/18 18:26 12 Intake and Output0 03/18/18 07:00 Intake Total 6300 ml Output Total 1900 ml Balance 4400 ml Intake Oral 0 ml IV Total 3200 ml Other 3100 ml Output Urine Total 1800 ml Oral Regurgitation 100 ml # Voids 1 # Emeses 1 General Appearance: No Acute Distress Cardiovascular: Other (reg rate) GI: Other (soft) Result Diagram: 03/18/1852803/18/18528 Assessment and Plan Problems: (1) Colostomy in place Status: Chronic Assessment & Plan: 03/18: s/p reversal. doing well. plan: gideon d/c kendall, ambulate Exam Sepsis Risk: No Definite Risk EDILBERTO MELENDEZ Mar 18, 2018 07:34
[2018-03-18 07:56] VITALS: BP 128/85
[2018-03-18] MEDS: cefTRIAXone(*) 1 GM VIAL 1 GM in NS(*) 0.9% 100 ML ADDVANT BAG 100 ML IVPB SCH (08:38)
[2018-03-18] MEDS: DOCUSATE SODIUM 100 MG CAP PO SCH ×2 (08:39→20:22)
[2018-03-18] MEDS: GABAPENTIN 300 MG CAP PO SCH ×2 (08:39→20:22)
[2018-03-18] MEDS: ENOXAPARIN 40 MG/0.4ML SYR SC SCH (08:39)
[2018-03-18] MEDS: ACETAMINOPHEN 500 MG TAB PO PRN ×2 (08:57→15:07)
[2018-03-18] MEDS ORDERED: cefTRIAXone 1 GM VIAL IVP SCH (09:00)
[2018-03-18 11:58] VITALS: BP 137/89
[2018-03-18] MEDS: traMADol 50 MG TAB PO PRN ×2 (13:53→20:23)
[2018-03-18 15:06] VITALS: BP 142/98
--- NOTE | 2018-03-18 15:48 | Medical Nutrition Therapy ---
Nutrition Anthropometrics Height (Inches): 80.00 Height (Calculated Centimeters: 203.429274 Weight (Pounds): 234 Weight (Calculated Kilograms): 106.141 BMI: 25.7 Miller Nutrition Score: Adequate Miller Nutrition Risk Score: 20 Dietary Referral Nutrition Risk Factors: Nutrition Risk Comment: Nutritional Diagnosis Nutritional Risk Acuity 3: Colostomy (reversal) Past Medical History: prostrate Ca, ALINE, colostomy, T2DM Nutritional Acuity: 2-Moderate Energy Requirement: 2575 (M- St J) Protein Requirement: 106 (1gm/kg) Fluid Requirement: 3000 (30ml/kg) Diet Type: Clear Liquids Nutrition Intervention: Incr diet as tolerated Nutrition Monitoring & Eval RD Patient Assessment Time: [address] Assessment Type: RD Assessment Patient Nutrition Acuity: 2-Moderate Follow Up Date: Mar 22, 2018 Nutritional Comment: 03/18 Pt admitted for colostomy reversal. Pt has hx of T2DM. Currently pt on clear liquid diet. BG raning 99-181. A1c 6.1. Will cont to monitor and encourage intake. EMIL ENGLE Mar 18, 2018 15:11
[2018-03-18 18:52] VITALS: BP 146/103
[2018-03-18] MEDS: MORPHINE 2 MG/ML SYR IVP PRN (22:19)
[2018-03-19] MEDS: MORPHINE 2 MG/ML SYR IVP PRN ×3 (02:04→08:10)
[2018-03-19] MEDS: NS(*) 0.9% 1000 ML BAG 1,000 ML IV SCH ×3 (02:53→18:41)
[2018-03-19] MEDS: KETOROLAC 15 MG/ML VIAL IVP SCH ×4 (05:22→23:19)
[2018-03-19 07:02] VITALS: BP 142/108
--- NOTE | 2018-03-19 08:00 | General Surgery Progress Note ---
Subjective Progress Notes Subjective no acute events. some upper abd pain. ambulating. urinating. poncho clears. +flatus per nurse, pt unsure. Physical Exam Vital Signs Date Time Temp Pulse Resp B/P (MAP) Pulse Ox O2 Delivery O2 Flow Rate FiO2 03/19/18 07:07 91 Nasal Cannula 2.0 03/19/18 07:02 98.7 97 16 142/108 (119) Intake and Output 03/19/18 07:00 Intake Total 3633 ml Output Total 2145 ml Balance 1488 ml Intake Oral 1522 ml IV Total 2111 ml Output Urine Total 2145 ml # Voids 1 General Appearance: No Acute Distress GI: Other (soft) Result Diagram: 03/18/1852803/18/18528 Assessment and Plan Problems: (1) Colostomy in place Status: Chronic Assessment & Plan: 03/18: s/p reversal. doing well. plan: clears, d/c kendall, ambulate 03/19: doing well. check labs. ambulate. likely advance diet and d/c abx. Exam Sepsis Risk: No Definite Risk EDILBERTO MELENDEZ Mar 19, 2018 08:00
[2018-03-19] MEDS: DOCUSATE SODIUM 100 MG CAP PO SCH ×2 (08:19→20:31)
[2018-03-19] MEDS: ENOXAPARIN 40 MG/0.4ML SYR SC SCH (08:19)
[2018-03-19] MEDS: GABAPENTIN 300 MG CAP PO SCH ×2 (08:19→20:31)
[2018-03-19] MEDS: cefTRIAXone(*) 1 GM VIAL 1 GM in NS(*) 0.9% 100 ML ADDVANT BAG 100 ML IVPB SCH (08:19)
[2018-03-19 08:51] LABS: PLATELET COUNT, AUTOMATED 176 K/uL (150-450)
[2018-03-19] MEDS: traMADol 50 MG TAB PO PRN ×2 (09:07→20:37)
[2018-03-19 11:01] VITALS: BP 151/113
[2018-03-19] MEDS: METOPROLOL SUCC XL 25 MG TABCR PO SCH (13:56)
[2018-03-19] MEDS: predniSONE 5 MG TAB PO SCH (13:56)
[2018-03-19 15:22] VITALS: BP 118/96
[2018-03-19] MEDS: metFORMIN HCL 500 MG TAB PO SCH (17:01)
[2018-03-19 18:46] VITALS: BP 144/109
[2018-03-19 23:10] VITALS: BP 163/116
[2018-03-19 23:17] VITALS: BP 162/102
[2018-03-20 03:29] VITALS: BP 151/109
[2018-03-20] MEDS: NS(*) 0.9% 1000 ML BAG 1,000 ML IV SCH (04:09)
[2018-03-20] MEDS: KETOROLAC 15 MG/ML VIAL IVP SCH ×3 (05:21→17:15)
[2018-03-20] MEDS: LEVOTHYROXINE SOD 0.112 MG TAB PO SCH (05:21)
[2018-03-20] MEDS: traMADol 50 MG TAB PO PRN (05:21)
[2018-03-20 06:22] LABS: PLATELET COUNT, AUTOMATED 163 K/uL (150-450)
[2018-03-20 06:57] VITALS: BP 149/100
[2018-03-20] MEDS: GABAPENTIN 300 MG CAP PO SCH ×2 (08:28→20:29)
[2018-03-20] MEDS: ENOXAPARIN 40 MG/0.4ML SYR SC SCH (08:28)
[2018-03-20] MEDS: DOCUSATE SODIUM 100 MG CAP PO SCH ×2 (08:28→20:29)
[2018-03-20] MEDS: predniSONE 5 MG TAB PO SCH (08:28)
[2018-03-20] MEDS: metFORMIN HCL 500 MG TAB PO SCH ×2 (08:28→17:07)
[2018-03-20] MEDS: METOPROLOL SUCC XL 25 MG TABCR PO SCH (08:28)
[2018-03-20] MEDS: TAMSULOSIN HCL 0.4 MG CAP PO SCH (08:28)
[2018-03-20] MEDS: CALCIUM CARBONATE 500 MG CHEW PO PRN ×2 (09:52→19:42)
[2018-03-20 11:31] VITALS: BP 129/91
--- NOTE | 2018-03-20 12:06 | General Surgery Progress Note ---
Subjective Progress Notes Subjective doing well. pain controlled. poncho some po. +bms. no vomiting. Physical Exam Vital Signs Date Time Temp Pulse Resp B/P (MAP) Pulse Ox O2 Delivery O2 Flow Rate FiO2 03/20/18 11:31 98.4 107 16 129/91 (104) 88 Nasal Cannula 2.0 Intake and Output 03/20/18 06:59 Intake Total 3970 ml Output Total 1420 ml Balance 2550 ml Intake Oral 880 ml IV Total 3090 ml Output Urine Total 1420 ml # Voids 8 # Bowel Movements 4 General Appearance: No Acute Distress Cardiovascular: Other (reg rate) GI: Other (soft, wounds healing appropriately) Result Diagram: 03/20/18 0543 03/20/1843 Assessment and Plan Problems: (1) Colostomy in place Status: Chronic Assessment & Plan: 03/18: s/p reversal. doing well. plan: clears, d/c kendall, ambulate 03/19: doing well. check labs. ambulate. likely advance diet and d/c abx. 03/20: doing well. hliv. ambulate. incentive spirometry. likely home tomorrow. Exam Sepsis Risk: No Definite Risk EDILBERTO MELENDEZ Mar 20, 2018 12:06
[2018-03-20] MEDS ORDERED: TRAM-420 PO (12:11)
[2018-03-20 15:43] VITALS: BP 105/81
[2018-03-20 19:30] VITALS: BP 130/90
[2018-03-20 23:54] VITALS: BP 140/99
[2018-03-21 03:23] VITALS: BP 143/100
[2018-03-21] MEDS: traMADol 50 MG TAB PO PRN ×2 (03:36→13:29)
[2018-03-21] MEDS: LEVOTHYROXINE SOD 0.112 MG TAB PO SCH (05:39)
[2018-03-21] MEDS: KETOROLAC 15 MG/ML VIAL IVP SCH ×3 (05:39→12:03)
[2018-03-21] MEDS: CALCIUM CARBONATE 500 MG CHEW PO PRN (05:39)
[2018-03-21 07:01] VITALS: BP 123/82
--- NOTE | 2018-03-21 07:47 | Hospitalist Depart ---
Discharge Summary Reason for Hosp/Final Diag: (1) Colostomy in place Status: Chronic Hospital Course & Plan: 03/18: s/p reversal. doing well. plan: gideon d/trinity kendall, ambulate 03/19: doing well. check labs. ambulate. likely advance diet and d/c abx. 03/20: doing well. hliv. ambulate. incentive spirometry. likely home tomorrow. 03/21: doing well. minimal pain. poncho po. +bms. i removed tera from ostomy site wound. low sats so will d/c home with O2. Departure Weight (Pounds): 234 Weight (Ounces): 3.0 Result Diagram: 03/20/1854203/20/18542 Condition: Improved Discharge Instructions Home Meds Active Scripts Tramadol Hcl (TRAMADOL HCL) 50 Mg Tablet, 50 MG PO Q4H PRN for PAIN, #30 TAB Prov:EDILBERTO ORTIZ 03/20/18 Reported Medications Ibuprofen (ADVIL) 200 Mg Tablet, 1-2 TAB PO BID 02/11/18 Tamsulosin Hcl (TAMSULOSIN HCL) 0.4 Mg Cap.er.24h, 0.4 MG PO QHS, CAP 02/11/18 Rosuvastatin Calcium (CRESTOR) 20 Mg Tablet, 20 MG PO QHS 06/06/17 Levothyroxine Sodium (LEVOTHYROXINE SODIUM) 100 Mcg Tablet, 112 MCG PO QDAY, TAB 06/06/17 Metformin Hcl (METFORMIN HCL) 1,000 Mg Tablet, 1 TAB PO BID, TAB 06/06/17 Oxybutynin Chloride (OXYBUTYNIN CHLORIDE) 5 Mg Tablet, 5 MG PO QHS, TAB 06/06/17 Prednisone 10 Mg Tab (PREDNISONE 10 MG TAB) 10 Mg Tablet, 5 MG PO QDAY, #3 TAB 06/06/17 Diet: Regular Activity: No Heavy Lifting Special Instructions: ok to shower change wound dressing daily and as needed f/u dr. nadya ortiz ([phone]) 1 wk f/u pcp 1 wk Venous Thromboembolism Antithrombotics Is Pt On Any Antithrombotics?: Yes EDILBERTO ORTIZ Mar 21, 2018 07:47
[2018-03-21] MEDS: DOCUSATE SODIUM 100 MG CAP PO SCH (08:06)
[2018-03-21] MEDS: GABAPENTIN 300 MG CAP PO SCH (08:06)
[2018-03-21] MEDS: TAMSULOSIN HCL 0.4 MG CAP PO SCH (08:06)
[2018-03-21] MEDS: metFORMIN HCL 500 MG TAB PO SCH (08:06)
[2018-03-21] MEDS: METOPROLOL SUCC XL 25 MG TABCR PO SCH (08:06)
[2018-03-21] MEDS: predniSONE 5 MG TAB PO SCH (08:07)
[2018-03-21] MEDS: ENOXAPARIN 40 MG/0.4ML SYR SC SCH (08:07)
[2018-03-21 10:54] VITALS: BP 123/79
== END 2018-03-21 13:50 | disposition home or self-care (01) | DRG 337 ==
LOC: OR 00:34 → MED 17:25
PROVIDERS: ADMIT Surgery; ATTEND Surgery
PROC: 0DNE4ZZ Release Large Intestine, Percutaneous Endoscopic Approach (ICD-10-PCS; 2018-03-17)
PROC: 0DSL4ZZ Reposition Transverse Colon, Percutaneous Endoscopic Approach (ICD-10-PCS; principal; 2018-03-17 10:23)
DX: Z43.3 Encounter for attention to colostomy (principal); K66.0 Peritoneal adhesions (postprocedural) (postinfection); G47.33 Obstructive sleep apnea (adult) (pediatric); E11.9 Type 2 diabetes mellitus without complications; J44.9 Chronic obstructive pulmonary disease, unspecified; E03.9 Hypothyroidism, unspecified; Z85.46 Personal history of malignant neoplasm of prostate
CPT/HCPCS: 36415; 36416; 82040; 82247; 82310; 82374; 82435; 82565; 82947; 82948; 83036; 84075; 84132; 84155; 84295; 84450; 84460; 84520; 85025; 88304; 93005; 94667; 94668; J0696; J1100; J1170; J1650; J1885; J2001; J2250; J2270; J2405; J2550; J2704; J3010; J3490; J7030; J7050; J7512

== ENCOUNTER → 2018-07-29 | Outpatient (CLI) | payer MEDICARE, BC ==
[~2018-07-29] MED LIST changes: -ROSU20TA23 PO; +ROSU20TA24 PO; +TRAM-420 PO
--- NOTE | 2018-07-29 08:57 | RADIOLOGY IMAGING REPORT ---
FACILITY: [facility] [place] PATIENT NAME: Shady Vargas : 1945 MR: [id number] V: [id number] EXAM DATE: ORDERING PHYSICIAN: EDILBERTO MELENDEZ TECHNOLOGIST: Location: [facility] [place] Patient: Shady Vargas : 1945 Visit/Account:[id number] Date of Sevice: 07/29/2018 ABDOMEN COMPLETE HISTORY: Pain post bowel resection. COMPARISON: CT dated September 05, 2017. FINDINGS: Liver: Enlarged measuring 22 cm in sagittal length. Otherwise negative. No gross evidence for hepat ic steatosis. Gallbladder: Contracted with probable mild sludge within the gallbladder lumen. Common duct: Normal, 4 mm diameter. Pancreas: Partially obscured by bowel, visualized aspects unremarkable. Spleen: Negative. Kidneys: Nonspecific mild lobulated contour of the kidneys which are otherwise unremarkable. This ma y be congenital. Upper abdominal aorta and IVC: Patent. Ascites: None visualized. IMPRESSION: 1. No acute findings. 2. Liver appears enlarged however this is likely normal for the patient's size. 3. Gallbladder is contracted with possible internal sludge. Report Dictated By: Lopez Lew MD at 07/29/2018 8:49 AM Report E-Signed By: Lopez Lew MD at 07/29/2018 8:51 AM WSN:[email or web address]
== END ==
LOC: US 00:57
PROVIDERS: ATTEND Surgery
DX: Z93.3 Colostomy status (principal)
CPT/HCPCS: 76700

== ENCOUNTER 2018-08-18 15:39 | Outpatient (RCR) | payer MEDICARE, BC ==
[2018-07-10 10:58] VITALS: BP 138/90
[2018-07-10 11:04] LABS: PLATELET COUNT, AUTOMATED 157 K/uL (150-450)
[2018-08-18 15:51] VITALS: BP 139/84
--- NOTE | 2018-08-18 23:13 | ONCOLOGY FOLLOW UP NOTE ---
EVENT DATE: August 18, 2018 CHIEF COMPLAINT/REASON FOR VISIT Known history of prostate carcinoma. Patient is here to review updated labs and clinical evaluation. ONCOLOGY HISTORY 1. [place] 7 adenocarcinoma of the prostate, tumor occupying four of 12 core biopsies with volume of 20% to 50% on each biopsy. Ultrasound biopsy was performed by Dr. Nguyen on 06/12/17. 2. Patient received external beam radiation therapy with IMRT 7340 cGy, standard fractionation which was completed 2017. 3. Patient also receiving concurrent hormone therapy with Lupron, which was discontinued December 2017. INTERVAL HISTORY Mr. Vargas was seen back in the Oncology Clinic for followup appointment. 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 He does have some fatigue which is notable in the afternoon. He remains very active. His PSA remains undetectable with no recovery to date. His pretreatment PSA was 8.05 ng/mL. The patient states he occasionally has some urinary urgency, particularly on the weekends related to driving and fluid intake. He gets up once at night. He has good flow, taking one Flomax per day. At night, his urinary frequency is diminished with 5 mg oxybutynin tablet. MEDICATIONS 1. Ibuprofen p.r.n. 2. Tamsulosin 0.4 mg q. day. 3. Crestor 20 mg daily. 4. Levothyroxine 100 mcg a day. 5. Metformin 1000 mg b.i.d. 6. Oxybutynin 5 mg at bedtime. 7. Prednisone 5 mg daily. ALLERGIES ATORVASTATIN. MEDICAL HISTORY 1. Type 2 diabetes. 2. COPD. 3. Hypercholesterolemia. 4. Prostate carcinoma. 5. Hypothyroidism. SURGICAL HISTORY 1. Abdominal surgery for volvulus 2017. 2. Bone spur removal 04/12 and 05/11. 3. Bilateral knee replacements in 2011. 4. Cataract surgery 01/10. 5. Prostate biopsy 06/12/17. COMPREHENSIVE REVIEW OF SYSTEMS Notable for fatigue in the afternoon, minor swelling in his legs related to previous fractures in his ankles, easy bruisability related to oral prednisone, mild neuropathy. AUA score was 7. Occasional urgency, rarely . Joint pain and stiffness. Loose bowels intermittently. PHYSICAL EXAMINATION GENERAL: Pleasant 73-year-old male. VITAL SIGNS: BP 139/84. Weight 260 pounds. Pulse 67. O2 sat 90% on room air. Respirations 16. LYMPHATICS: No lymphadenopathy. LUNGS: Clear bilaterally. HEART: Sounds regular. No audible murmur. ABDOMEN: Soft. Mildly obese with no gross organomegaly. RECTAL: Deferred due to subnormal PSA. EXTREMITIES: Trace edema in the lower extremities, right greater than left, which the patient relates to previous trauma which is long-standing. IMPRESSION No evidence of prostate carcinoma recurrence. PSA remains undetectable following radiation therapy. Hormone therapy was discontinued in December 2017. PLAN Patient will continue regular medical care with Dr. Solis locally. He will see Dr. Nguyen for urology needs. I will see him annually in July with an updated PSA. All questions answered to his satisfaction over a 40-minute followup appointment. He will have laboratory studies drawn a week prior to my appointment, to include a PSA, CBC, CMP, and total testosterone. HOANG
== END 2018-08-19 15:42 | disposition home or self-care (01) ==
LOC: RAON 15:39
PROVIDERS: ATTEND Radiology Radiation Oncology
DX: C61 Malignant neoplasm of prostate (principal)
CPT/HCPCS: 36415; 82040; 82247; 82310; 82374; 82435; 82565; 82947; 84075; 84132; 84153; 84155; 84295; 84450; 84460; 84520; 85025